=== PATIENT | male | born 1945 | race Caucasian/White ===

== ENCOUNTER → 2022-12-04 11:29 | Outpatient (CLI) | payer MEDICARE, OTHER, SELFPAY ==
--- NOTE | 2022-12-04 11:32 | DI.RAD.S_ITS ---
PROCEDURE: XR LUMBAR SPINE MIN 4V INDICATIONS: Lumbar radiculopathy right lower extremity TECHNIQUE: 5 views of the lumbar spine were acquired, including bilateral oblique views. COMPARISON: None. FINDINGS: Bones: 5 nonrib-bearing vertebrae are present. There is normal bony alignment. No acute vertebral body compression fractures. Chronic appearing anterior compression deformity of L2. Postsurgical changes of surgical fusion across the bilateral sacroiliac joints. Surgical screw extends across the right superior pubic ramus and superior acetabulum. Plate and screw fixation of the pubic symphysis with possible fracture of the plate to the left of the midline/pubic symphysis. No evidence for hardware loosening. No suspicious bony lesions. Moderate multilevel spondylosis of the imaged spine. Soft tissues: Overlying bowel gas pattern is normal. No suspicious soft tissue calcifications. Neurostimulator device projects over the left pelvis. Oblique images: No pars defects. IMPRESSION: Lumbar spine without acute osseous abnormalities. Chronic appearing anterior compression fracture of L2. Postsurgical changes of fusion across the bilateral sacroiliac joints, right superior acetabulum and superior pubic ramus, and pubic symphysis. Fixation plate appears to be fractured to the left of midline. No evidence for hardware loosening. Dictated by: Tommy Pinon M.D. on 12/04/2022 at 14:40 Approved by: Tommy Pinon M.D. on 12/04/2022 at 14:43
--- NOTE | 2022-12-04 11:32 | DI.RAD.S_ITS ---
PROCEDURE: XR HIP W PEL IF DONE KRISS MIN 4V INDICATIONS: Lumbar radiculopathy right lower extremity TECHNIQUE: AP pelvis with lateral view(s) of the bilateral hip(s). COMPARISON: None. FINDINGS: Bones: No acute fractures or dislocations. Pelvic ring appears intact. No suspicious bony lesions. Postsurgical changes of surgical fixation across the bilateral sacroiliac joints and right superior acetabulum and right superior pubic ramus. Plate and screw fixation of the pubic symphysis with apparent fracture of the plate to the left of midline. No evidence for hardware loosening. Degenerative changes of the bilateral hips Soft tissues: The visualized bowel gas pattern is normal. No suspicious soft tissue calcifications. Neurostimulator device projects over the left pelvis. IMPRESSION: Bilateral hip without acute fracture or dislocation. Degenerative changes of the bilateral hips. Postoperative changes from surgical fusion across the bilateral sacroiliac joints, right superior acetabulum and right superior pubic ramus, as well as the pubic symphysis. Pubic symphysis fixation plate appears to be fracture to the left of midline. No evidence for hardware loosening. Dictated by: Tommy Pinon M.D. on 12/04/2022 at 14:44 Approved by: Tommy Pinon M.D. on 12/04/2022 at 14:46
== END ==
PROVIDERS: PCP Family Medicine; Referring Provider Physical Medicine & Rehabilitation; Visit Provider Physical Medicine & Rehabilitation
DX: M54.16 Radiculopathy, lumbar region (principal); Z87.81 Personal history of (healed) traumatic fracture; Z98.1 Arthrodesis status; Z96.82 Presence of neurostimulator
CPT/HCPCS: 72110; 73522

== ENCOUNTER 2022-12-30 08:07 | Outpatient (CLI) | payer MEDICARE, OTHER, SELFPAY ==
[2022-12-30] VITALS (9 sets, daily range): BP systolic 133–168; BP diastolic 61–107; PULSE 60–61; RESP 13–18; TEMP 36.2; O2SAT 95–99
[2022-12-30] MEDS: MIDAZOLAM 2 MG/2 ML VIAL 1 MG IV (09:44)
[2022-12-30] MEDS: LIDOCAINE 1% 20 ML 5 ML INJ (09:49)
[2022-12-30] MEDS: BETAMETHASONE 30 MG/5 ML MDV 12 MG INJ (09:49)
[2022-12-30] MEDS: IOPAMIDOL 15 ML VIAL 3 ML INJ (09:50)
[2022-12-30] MEDS: BUPIVACAINE 0.5% (PF) 30 ML VIAL 5 ML INJ (09:51)
--- NOTE | 2022-12-30 10:04 | P.PCN_ITS ---
Date/Time/Diagnoses Date of procedure: 12/30/22 Time of procedure: 10:04 Pre-procedure diagnosis: Sacroiliac joint pain/DJD Post-procedure diagnosis: same Procedure Notes Procedure: Fluoroscopic guided contrast controlled bilateral sacroiliac joint injection Indications: Ron is referred by Dr. Yeager for treatment of bilateral sacroiliac joint DJD Physician: Suleman Bautista Total Fluoroscopy time (seconds): 13 Total sedation minutes: 16 Complications: none Procedure in detail & Post-procedure care: Description of procedure Fluoroscopic guided, contrast controlled bilateral sacroiliac joint injection Following review of allergies and review of potential side effects and complications, including, but not necessarily limited to, infection, allergic reaction, local tissue breakdown, temporary as well as permanent nerve injury, paralysis, stroke and possible , the patient indicated that they understood and agreed to proceed. An informed consent was signed by the patient, witnessed by a nurse, and placed in the patient's chart. Additionally, other treatment options including modalities, medications, and physical therapy were reviewed with the patient. After review of previous anaesthesic history and IV conscious sedation the patient was deemed safe to proceed with today?s procedure with IV conscious sedation as ASA class II designation. Safety time-out was performed to confirm patient ID, procedure to be performed and site of procedure. IV sedation was accomplished with a combination of 1mg Versed were administered by the RN after DO order, titrated to patient comfort during the course of the procedure while the patient remained responsive to all verbal commands In the prone position following sterile prep and drape of the pelvic region, the hyper lucency on in the inferior aspect of the sacroiliac joint was identified fluoroscopically the skin was anesthetized be a 25 gauge 1.5 inch needle with approximately 2cc of 1% lidocaine solution. At this point, a 22 gauge 3 in s beverly needle was atraumatically introduced and advanced under fluoroscopic guidance into the inferior aspect of the right sacroiliac joint. Following negative aspiration, approximately 0.3cc of Isovue-300 was injected confirming intra-articular placement without vascular uptake. Radiographic data, including multiple fluoroscopic views of the pelvis, reveals a spinal needle in the sacroiliac joint hyper lucent zone. Subsequent view show flow contrast tear superiorly and inferiorly within the joint capsule without vascular intrathecal uptake. At this point a total of 1cc of 0.5% Marcaine was combined with 1cc of 6mg of betamethasone was injected without incident. Attention was then refocused the left sacroiliac joint where the procedure was replicated. The procedure tolerated the procedure well without signs or symptoms of complications prior to transfer to the recovery area continued monitoring without incident. The patient was then transferred to the recovery area with a bur observed for an appropriate time after the injection. The patient reverted a vas score of 7 prior to the procedure and post-procedure vas of 1. Postop instructions The patient was provided with a pain like to continue to record the patient's response to the target specific procedure prior to the patient's follow-up visit with the referring physician. Additionally, specific post injection care instructions and a contact number to our office were provided if concerns arise regarding the possible complications associated with procedure are suspected.
--- NOTE | 2022-12-30 10:30 | DI.RAD.S_ITS ---
PROCEDURE: PAIN SI JOINT INJECTION KRISS INDICATIONS: SACROILIAC DISORDER COMPARISON: None. FINDINGS: Fluoroscopic spot filming was performed to verify placement of needles at the sacroiliac joints, as labeled on the films. Appropriate location(s) of the needle tip(s) was confirmed by injection of iodinated contrast. IMPRESSION: Intraprocedural fluoroscopy was provided for guidance and anatomical localization. Please see the procedure report for further details. Dictated by: Bo Coronado M.D. on 12/30/2022 at 16:34 Approved by: Bo Coronado M.D. on 12/30/2022 at 16:36
== END 2022-12-30 10:20 | disposition home or self-care (01) ==
LOC: RAD 08:09
PROVIDERS: Family Provider Physical Medicine & Rehabilitation; PCP Family Medicine; Referring Provider Physical Medicine & Rehabilitation; Visit Provider Physical Medicine & Rehabilitation
DX: M53.3 Sacrococcygeal disorders, not elsewhere classified (principal); M46.1 Sacroiliitis, not elsewhere classified
CPT/HCPCS: 27096; 99152; J0702; J2250

== ENCOUNTER → 2023-02-05 07:46 | Outpatient (CLI) | payer MEDICARE, OTHER, SELFPAY ==
[2023-02-05 08:37] LABS: Add Manual Diff / Slide Review NO; Basophils Absolute Auto 0 /uL (0-100); Basophils Percent Auto 0.7 % (0-2); Eosinophils Absolute Auto 300 /uL (0-450); Eosinophils Percent Auto 5.5 % (2-4); Hematocrit 38.8 % (41-53); Lymphocytes Absolute Auto 2300 /uL (1100-4500); Lymphocytes Percent Auto 44.5 % (25-40); Mean Corpuscular HGB Conc 33.6 % (30-36); Mean Corpuscular Hemoglobin 32.7 PG (26-34); Mean Corpuscular Volume 97.2 fL (80-100); Monocytes Absolute Auto 800 /uL (0-900); Monocytes Percent Auto 15.9 % (3-14); Neutrophils Absolute Auto 1700 /uL (1500-7000); Neutrophils Percent Auto 33.4 % (50-75); Platelet Count 161 X10^3/uL (150-400); Red Blood Cell Count 3.99 X10^6/uL (4.5-5.9); Red Cell Distribution Width 13.1 % (11.6-14.8); White Blood Cell Count 5.1 X10^3/uL (4.5-11.0)
[2023-02-05 08:46] LABS: Hemoglobin A1C% w Est Avg Glu 5.5 % (4.0-6.0)
[2023-02-05 09:12] LABS: Alanine Aminotransferase 21 IU/L (<50); Albumin 4.1 g/dL (3.5-5.0); Albumin Globulin Ratio 1.5 (1.0-2.8); Alkaline Phosphatase 72 U/L (38-126); Aspartate Aminotransferase 22 IU/L (17-59); BUN Creatinine Ratio 27.5 (6-22); Bilirubin Total 0.7 mg/dL (0.2-1.3); Blood Urea Nitrogen 22 mg/dL (9-20); Carbon Dioxide 29 mmol/L (22-32); Chloride 103 mmol/L (98-107); Cholesterol 128 mg/dL (140-199); Estimated Glomerular Filt Rate > 60 mL/min (>60); Globulin 2.7 g/dL (1.7-4.1); Glucose 94 mg/dL (80-110); HDL Cholesterol 46 mg/dL (40-60); HEMOLYSIS < 15 (0-50); LDL Cholesterol Calculated 58 mg/dL (<100); Potassium 4.2 mmol/L (3.4-5.1); Sodium 140 mmol/L (137-145); Total Protein 6.8 g/dL (6.3-8.2); Triglycerides 120 mg/dL (35-150)
== END ==
PROVIDERS: Family Provider Physical Medicine & Rehabilitation; PCP Family Medicine; Referring Provider Family Medicine; Visit Provider Family Medicine
DX: G31.83 Neurocognitive disorder with Lewy bodies (principal); I10 Essential (primary) hypertension; F02.A0 Dementia in other diseases classified elsewhere, mild, without behavioral disturbance, psychotic disturbance, mood disturbance, and anxiety; I25.10 Atherosclerotic heart disease of native coronary artery without angina pectoris
CPT/HCPCS: 36415; 80053; 80061; 83036; 85025

== ENCOUNTER 2023-02-25 08:30 | Outpatient (RCR) | payer MEDICARE, OTHER, SELFPAY ==
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
== END 2023-10-13 09:04 | disposition home or self-care (01) ==
LOC: OT 08:30
PROVIDERS: Absent Provider Physical Medicine & Rehabilitation; Family Provider Physical Medicine & Rehabilitation; PCP Family Medicine; Referring Provider Family Medicine; Visit Provider Family Medicine
DX: M19.049 Primary osteoarthritis, unspecified hand (principal); G31.83 Neurocognitive disorder with Lewy bodies; F02.A0 Dementia in other diseases classified elsewhere, mild, without behavioral disturbance, psychotic disturbance, mood disturbance, and anxiety; I25.10 Atherosclerotic heart disease of native coronary artery without angina pectoris; I10 Essential (primary) hypertension
CPT/HCPCS: 97035; 97110; 97140; 97165

== ENCOUNTER 2023-06-15 11:30 | Outpatient (RCR) | payer MEDICARE, OTHER, SELFPAY ==
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
--- NOTE | 2022-10-20 18:09 | PT.OPPOC ---
Physical, Occupational & Speech Therapy At [facility] Current Diagnoses Neurocognitive disorder with Lewy bodies (10/20/22) Low back pain, unspecified (10/20/22) Pain in right foot (10/20/22) Difficulty in walking, not elsewhere classified (10/20/22) Other abnormalities of gait and mobility (10/20/22) Abnormal posture (10/20/22) Weakness (10/20/22) Visit Care Team Role Provider Type Nyasia Azul MD Attending Provider Non-Staff Primary Care Provider Referring Provider Specialty: Family Practice Address: [facility], [address] [place] [address], [id number] Email: Plan Of Care PT-OP-T Assessment and Plan Start: 08/07/22 17:51 Freq: Status: Active Protocol: Document 10/20/22 18:05 [facility] (Rec: 10/20/22 18:06 [facility] [id number]) Physical Therapy Assessment Goals skiing Superintendent General Goal (LTG) Pt will be able return to skiing on green hills and feel safe. LTG Duration 12/13/22 patterned movements Senior Living Goal (LTG) Pt will be able to follow 6 patterned movements in a row w /o cueing. LTG Duration 12/13/22 Plan of Care Dates Plan of Care Start Date 10/20/22 Plan of Care End Date 12/13/22 Electronically Signed by: Luz Whatley, PT 10/20/22 3274 If you are in agreement with this Plan of Care, please return a signed and dated copy. I have reviewed this Plan of Care and certify that the skilled therapy services above are required to meet the patient?s needs. Physician Signature Date Printed Name and Credentials Clinical Instructor Signature Printed Name and Credentials
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
--- NOTE | 2022-12-09 18:49 | PT.OPPOC ---
Physical, Occupational & Speech Therapy At [facility] Current Diagnoses Neurocognitive disorder with Lewy bodies (12/09/22) Low back pain, unspecified (12/09/22) Pain in right foot (12/09/22) Difficulty in walking, not elsewhere classified (12/09/22) Other abnormalities of gait and mobility (12/09/22) Abnormal posture (12/09/22) Weakness (12/09/22) Visit Care Team Role Provider Type Nyasia Azul MD Attending Provider Non-Staff Primary Care Provider Referring Provider Specialty: Family Practice Address: [facility], [address] [place] [address], [id number] Email: Plan Of Care PT-OP-T Assessment and Plan Start: 08/07/22 17:51 Freq: Status: Active Protocol: Document 12/09/22 10:38 [facility] (Rec: 12/09/22 18:49 [facility] [id number]) Physical Therapy Assessment Goals skiing Snf Goal (LTG) Pt will be able return to skiing on green hills and feel safe. 11/17-has not tried 12/09-not attempted LTG Duration 4/3 patterned movements Program Services Planner Goal (LTG) Pt will be able to follow 6 patterned movements in a row w /o cueing. 12/09-able to follow 2 LTG Duration 4/9 walking Program Services Planner Goal (LTG) Pt will feel comfortable and will show no LOB w/amb on uneven/varied terrain. 11/17-has been walking mostly on even terrain 12/09-has not been trying LTG Duration 4/3 pain Short Term Goal (STG) Pt will be able to walk his half mile walk without requiring the need for a seated rest break STG Duration achieved-can take standing break talking to recover breath Program Services Planner Goal (LTG) Pt will able to be able to do a longer walk (1 mile or greater) without requiring rest break and inc ability to do hills. 12/09-1/2 mile at this time- encouraged to start adding to walks (not doing a lot d/t weather) LTG Duration 4/3 strength Short Term Goal (STG) Pt will be indep w/HEP for strength, ROM, and pain relief . STG Duration achieved-advancing as able Snf Goal (LTG) Pt will score at least 4+/5 on all LE MMT to show improved strength in order to allow greater ease w/pt mobility. 10/20-much improved 11/17-achieved ext R PF & B hp ext 12/09-still R eversion ,B hip ext & R PF limited LTG Duration 03/02 posture Short Term Goal (STG) Pt will be able to stand and sit with only moderate fwd posture allowing him to drink out of a cup fully. STG Duration achieved 10/20 Snf Goal (LTG) Pt will show improved posture with ability to keep head in more neutral vs fwd position to dec c/o back pain. 11/17-cues still needed 12/09-overall better, some cues needed when doing activity LTG Duration 03/02/23 6 min walk Program Services Planner Goal (LTG) Pt will be able to amb 6 min walk test w/o AD w/o any LOB, LBP or foot pain greater than 2/10 and amb at least 1200ft 09/16/22: GOAL MET: no LBP or foot pain and completed 1517 ft without AD, took albuterol pre tx and stated no chest tightness during assessment. LTG Duration GOAL MET 09/16/22 balance Short Term Goal (STG) Pt will score at least 20/24 on DGI to show dec fall risk 09/16/22: BROWN 53/56. STG Duration achieved Program Services Planner Goal (LTG) Pt will score at least 19/30 on FGA to show dec fall risk 09/26/22: GOAL MET: 1-19 % impairment. LTG Duration 11/10 GOAL MET Assessment Summary Assessment stopped hurdles d/t pt stepping off and ankle pain on R-able to walk after without significant deviation and only mild inc pain. Edu to pt and to contact MD if pain increases but by end of session pt noted he barely felt it. pt and feel like the dec to 1x/week has dec his progress. He still shows difficulty with patterned movement, high level balacne and glute strength. Improved hip ext w/manual. Physical Therapy Plan Frequency and Duration Frequency of Treatment 1-2x/Week Duration of treatment (weeks) 12 Plan of Care Start Date 12/09/22 Plan of Care End Date 03/03/23 Therapeutic Interventions Therapeutic Interventions Aquatic Therapy,Balance Training,Coordination Training ,Gait Training,Home Exercise Program,Joint Mobilizations, Manual Therapy,Neuromuscular Re-education,Orthotic/ Prosthetic Management,Patient/ Caregiver Education,Self-Care/ Home Management,Soft Tissue Mobilization,Taping, Therapeutic Activities, Therapeutic Exercises Next Visit Focus/Plan Next Note Type Treatment Note Next Visit Plan Try working on lg patterned movements for pt to follow, cont to advance sport cord work POC: Manual to improve posture , counting bwds and abcs during gait. Continue gait amplitude. Uneven surface with dynamic activity including walking. Plan of Care Dates Plan of Care Start Date 12/09/22 Plan of Care End Date 03/03/23 Electronically Signed by: Luz Whatley, PT 12/09/22 [id number] If you are in agreement with this Plan of Care, please return a signed and dated copy. I have reviewed this Plan of Care and certify that the skilled therapy services above are required to meet the patient?s needs. Physician Signature Date Printed Name and Credentials Clinical Instructor Signature Printed Name and Credentials
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
--- NOTE | 2023-03-03 17:30 | PT.OPPOC ---
Physical, Occupational & Speech Therapy At [facility] Current Diagnoses Neurocognitive disorder with Lewy bodies (03/03/23) Low back pain, unspecified (03/03/23) Pain in right foot (03/03/23) Difficulty in walking, not elsewhere classified (03/03/23) Other abnormalities of gait and mobility (03/03/23) Abnormal posture (03/03/23) Weakness (03/03/23) Visit Care Team Role Provider Type Nyasia Azul MD Attending Provider Non-Staff Primary Care Provider Referring Provider Specialty: Family Practice Address: [facility], [address] [place] [address], [id number] Email: Plan Of Care PT-OP-T Assessment and Plan Start: 08/07/22 17:51 Freq: Status: Active Protocol: Document 03/03/23 13:54 [facility] (Rec: 03/03/23 16:48 [facility] [id number]) Physical Therapy Assessment Goals boat Usp Goal (LTG) Pt will be able to safely be on boat w/ per report . LTG Duration 04/28/23 stairs Impairment pt having to hold onto 's arm Mule Developer Goal (LTG) Pt will be able do stairs w/o outside support safely in the community. LTG Duration 04/28 patterned movements Mule Developer Goal (LTG) Pt will be able to follow 6 patterned movements in a row w /o cueing. 12/09-able to follow 2 01/14-5 patterned movements in a row 03/03-able to follow 5 patterned movements more consistantly LTG Duration 04/28 walking Mule Developer Goal (LTG) Pt will feel comfortable and will show no LOB w/amb on uneven/varied terrain. 11/17-has been walking mostly on even terrain 12/09-has not been trying 01/14-hasn't been on any trails d/t weather (wet and rainy) 03/03-Has done some trails at [facility] where campers and felt okay LTG Duration achieved-pt reports no issues w/trails at [facility] pain Short Term Goal (STG) Pt will be able to walk his half mile walk without requiring the need for a seated rest break STG Duration achieved-can take standing break talking to recover breath Mule Developer Goal (LTG) Pt will able to be able to do a longer walk (1 mile or greater) without requiring rest break and inc ability to do hills. 12/09-1/2 mile at this time- encouraged to start adding to walks (not doing a lot d/t weather) 01/14-doing 1 mile w/1 break LTG Duration able to do 4 mile walk w/3-4 rest breaks d/tchest only strength Short Term Goal (STG) Pt will be indep w/HEP for strength, ROM, and pain relief . STG Duration achieved-advancing as able Mule Developer Goal (LTG) Pt will score at least 4+/5 on all LE MMT to show improved strength in order to allow greater ease w/pt mobility. 10/20-much improved 11/17-achieved ext R PF & B hp ext 12/09-still R eversion ,B hip ext & R PF limited 01/14-mild R inversion limit & B hip ext & R PF limit; LPM dec 03/03-still PF on R limited LTG Duration 04/28 posture Short Term Goal (STG) Pt will be able to stand and sit with only moderate fwd posture allowing him to drink out of a cup fully. STG Duration achieved 10/20 Mule Developer Goal (LTG) Pt will show improved posture with ability to keep head in more neutral vs fwd position to dec c/o back pain. 11/17-cues still needed 12/09-overall better, some cues needed when doing activity 01/14-improving 3/5 [address] VCT w/ occ cues still needed 4/4-cues needed for neck LTG Duration 04/28 Assessment Summary Assessment Pt has made excellent progress since last progress report and is showing improved activity tolerance w/less reports of ankle or back pain. He still c/o ankle discomfort w/activity. He would benefit from cont skilled PT to cont to advance stabiltiy to feel comfortable and be safe on boat along w/ be able to navigate stairs int he community w/o issues.Pt will do 2x/ this week then go down to 1x/week. Physical Therapy Plan Frequency and Duration Frequency of Treatment 2x/wk 1 week;1x/wk Duration of treatment (weeks) 8 Plan of Care Start Date 03/03/23 Plan of Care End Date 04/28/23 Therapeutic Interventions Therapeutic Interventions Aquatic Therapy,Balance Training,Coordination Training ,Gait Training,Home Exercise Program,Joint Mobilizations, Manual Therapy,Neuromuscular Re-education,Orthotic/ Prosthetic Management,Patient/ Caregiver Education,Self-Care/ Home Management,Soft Tissue Mobilization,Taping, Therapeutic Activities, Therapeutic Exercises Next Visit Focus/Plan Next Note Type Treatment Note Next Visit Plan uneven surface activities to work on pt ability to be on boat this summer, Continue working on lg patterned movements for pt to follow, coordination step patterning, cont to advance sport cord work, prone LE ext & press ups for core/glut strength and anterior chain flexibility for gait alignment/posturing. POC: Manual to improve posture , counting bwds and abcs during gait. Continue gait amplitude. Uneven surface with dynamic activity including walking. Plan of Care Dates Plan of Care Start Date 03/03/23 Plan of Care End Date 04/28/23 Electronically Signed by: Luz Whatley, PT 03/03/23 6511 If you are in agreement with this Plan of Care, please return a signed and dated copy. I have reviewed this Plan of Care and certify that the skilled therapy services above are required to meet the patient?s needs. Physician Signature Date Printed Name and Credentials Clinical Instructor Signature Printed Name and Credentials
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
== END 2023-06-25 16:30 | disposition home or self-care (01) ==
LOC: PHYS 11:30
PROVIDERS: PCP Family Medicine; Referring Provider Family Medicine; Visit Provider Family Medicine
DX: G31.83 Neurocognitive disorder with Lewy bodies (principal); R53.1 Weakness; M54.50 Low back pain, unspecified; M79.671 Pain in right foot; R26.2 Difficulty in walking, not elsewhere classified; R29.3 Abnormal posture; R26.89 Other abnormalities of gait and mobility
CPT/HCPCS: 97110; 97112; 97116; 97140; 97162; 97535

== ENCOUNTER → 2023-06-25 15:24 | Outpatient (CLI) | payer MEDICARE, OTHER, SELFPAY ==
--- NOTE | 2023-06-25 15:26 | DI.CT.S_ITS ---
PROCEDURE: CT LUMBAR SPINE WO CON INDICATIONS: Lumbar stenosis with Right LE L5 symptoms TECHNIQUE: Noncontrast 3 mm thick sections acquired from the T12 level to the sacrum. Sagittal and coronal reformats were constructed. For radiation dose reduction, the following was used: automated exposure control. COMPARISON: DamianAyad Tawanda Alejandre, , CT LUMBAR SPINE, 08/17/2019, 7:20. FINDINGS: Image quality: Excellent. Bones: A straightening of normal lumbar lordosis. Mild levocurvature. Similar extent of L2 compression deformity with 75% height loss centrally. Redemonstration of retropulsion into the spinal canal resulting in moderate central canal stenosis. No suspicious lytic or blastic bony lesions. No pars defects. There are multilevel degenerative changes of the lumbar spine. There is diffusely decreased osseous mineralization. Multilevel anterior osteophyte formation. Multilevel disc height, most severe at L5-S1 with vacuum disc phenomenon. Facet hypertrophy is worse at L3-L4, L4-5 and L5-S1.. Moderate narrowing of the spinal canal at L1-L2 secondary to compression deformity and retropulsion as above. Otherwise, no significant central canal narrowing. Multilevel osseous foraminal narrowing, worse at L2-L3 and L5-S1 bilaterally with at least moderate narrowing. Bilateral sacroiliac screw fixation. The fracture lines are still visible. Soft tissues: No retroperitoneal masses or hematomas. Visualized aorta is normal in caliber. Atherosclerotic vascular calcifications. Bilateral renal cysts. Fatty atrophy of the pancreas. IMPRESSION: 1. Multilevel degenerative changes of the lumbar spine. Compression deformity at L2 is stable compared to prior with retropulsion resulting in moderate central canal stenosis. 2. Multilevel osseous neural foraminal narrowing, worse at L2-L3 and L5-S1 bilaterally. Dictated by: Ruben Salazar M.D. on 06/26/2023 at 9:40 Approved by: Ruben Salazar M.D. on 06/26/2023 at 9:48
== END ==
PROVIDERS: Family Provider Family Medicine; PCP Family Medicine; Referring Provider Physical Medicine & Rehabilitation; Visit Provider Physical Medicine & Rehabilitation
DX: M47.26 Other spondylosis with radiculopathy, lumbar region (principal); M47.27 Other spondylosis with radiculopathy, lumbosacral region; M53.3 Sacrococcygeal disorders, not elsewhere classified; M48.061 Spinal stenosis, lumbar region without neurogenic claudication; M48.07 Spinal stenosis, lumbosacral region; Z87.81 Personal history of (healed) traumatic fracture
CPT/HCPCS: 72131

== ENCOUNTER 2023-07-20 14:30 | Outpatient (RCR) | payer MEDICARE, OTHER, SELFPAY ==
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
--- NOTE | 2023-06-24 17:03 | PT.OPPOC ---
Physical, Occupational & Speech Therapy At [facility] Current Diagnoses Parkinson's disease (06/24/23) Visit Care Team Role Provider Type Rodolfo Yeager DO Attending Provider Physician Family Provider Primary Care Provider Referring Provider Specialty: Family Practice Address: [address] [place] [address], [address], [address] Email: [email or web address] Plan Of Care PT-OP-T Assessment and Plan Start: 06/22/23 15:35 Freq: Status: Active Protocol: Document 06/24/23 15:32 [facility] (Rec: 06/24/23 17:03 [facility] [id number]) Physical Therapy Assessment Rehab Potential Rehabilitation Potential Fair Evaluation Complexity Number of Personal Factors/Comorbidities 3 or More Number of Body Systems Impaired 3 Clinical Presentation at Evaluation Evolving Impairments Impairments Activity Tolerance,Balance, Coordination,Functional Activities,Functional Mobility ,Gait,Pain Other Concerns Fall Risk Yes Goals 5 Impairment 9 STS in 30 sec Drum Tender Goal (LTG) Pt will perform at least 14 reps of STS in 30 sec to improve functional balance and strength. LTG Duration 16 treatments or 5 weeks 4 Impairment Lack of HEP Group Home Goal (LTG) Pt will perform BIG exercises and functional activities HEP with no more than cues to improve amplitude of movement and balance. LTG Duration 16 treatments or 5 weeks 3 Impairment 1348 gait in 6 minutes Group Home Goal (LTG) Pt will gait train at least 1600 feet in 6 minutes to improve community ambulation and balance. LTG Duration 16 treatments of 5 weeks 2 Impairment TUG in 14 sec Group Home Goal (LTG) Pt will perform TUG in no more than 10 sec to decrease fall risk. LTG Duration 16 treatments or 5 weeks 1 Impairment ABC score reflects 36.25% confidence in balance Group Home Goal (LTG) Pt will present with ABC score reflecting at least 50% confidence in balance in mobility tasks to improve quality of life and to decrease fall risk. LTG Duration 16 treatments or 5 weeks Assessment Summary Assessment Pt is a 77 y/o male presenting with Parkinson's-like symptoms of mask-like expression, tremor, bradykinesia and very poor coordination in setting of Lewy Body Dementia. His LE strength is normal with MMT today. Pt does have significant communicative and cognitive challenges during assessment. These may be a barrier to BIG therapy. He also has a history of multiple right foot injuries and pelvic fractures and resulting pain. These are also potential barriers to tolerating BIG exercises. , Suyapa, arrives with PT and is very supportive. Since LSVT BIG does focus on neurologically challenging exercises, walking and balance activities as well as personalized functional activities, it may be a very helpful program for pt. Will have to see how he responds to treatment. PT ed pt and that his goal of driving will not be met in this outpatient setting as that requires quick processing, decision making and fine motor skills and requires MD and driving therapist to assess. Similarly , they express goals of getting back on sailboat and downhill skiing. They appear to be grieving their loss of their high quality of life ( sailing, biking trips, flying, traveling). They do not appear to understand or accept yet the neurodegenerative nature of Lewy Body Dementia. This is a potential barrier to therapy. Pt could potentially improve in balance, gait and exercises with the structured nature of LSVT BIG. Physical Therapy Plan Frequency and Duration Frequency of Treatment 4x/Week Duration of treatment (weeks) 5 Plan of Care Start Date 06/24/23 Plan of Care End Date 07/29/23 Therapeutic Interventions Therapeutic Interventions Balance Training,Coordination Training,Gait Training,Home Exercise Program,Neuromuscular Re-education,Patient/ Caregiver Education,Self-Care/ Home Management,Therapeutic Activities,Therapeutic Exercises Next Visit Focus/Plan Next Note Type Treatment Note Next Visit Plan Initiate BIG exercise prescription Plan of Care Dates Plan of Care Start Date 06/24/23 Plan of Care End Date 07/29/23 Electronically Signed by: Gail Valdes PT 06/24/23 6424 If you are in agreement with this Plan of Care, please return a signed and dated copy. I have reviewed this Plan of Care and certify that the skilled therapy services above are required to meet the patient?s needs. Physician Signature Date Printed Name and Credentials Clinical Instructor Signature Printed Name and Credentials
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
--- NOTE | 2023-07-16 07:22 | PT-IP ANOTE ---
Late entry for PT note last date. During gait, pt wandered to different areas as PT attempted to instruct him to go in and out of doorways. Once again, his cognitive challenges are a barrier to progression with gait and other BIG tasks.
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
--- NOTE | 2023-07-16 12:43 | PT-IP ANOTE ---
PT attempts to communicate with referring provider, Dr. Yeager, twice today: by inhouse secure email and by phone. Per staff in his clinic, he is on vacation. PT would like to include referring physician in conversation with pt and about his cognitive presentation/decline and lack of progress with BIG. Will continue efforts next week as provider available.
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
== END 2023-07-27 12:30 | disposition home or self-care (01) ==
LOC: PHYS 14:30
PROVIDERS: Family Provider Family Medicine; PCP Family Medicine; Referring Provider Family Medicine; Visit Provider Family Medicine
DX: G20 Parkinson's disease (principal)
CPT/HCPCS: 97110; 97116; 97162; 97530; 97535

== ENCOUNTER 2023-07-28 09:22 | Outpatient (CLI) | payer MEDICARE, OTHER, SELFPAY ==
[2023-07-28] VITALS (9 sets, daily range): BP systolic 104–121; BP diastolic 58–76; PULSE 60–61; RESP 14–18; TEMP 35.9; O2SAT 94–98
--- NOTE | 2023-07-28 09:23 | DI.RAD.S_ITS ---
PROCEDURE: PAIN L INTERLAMINAR/CAUDAL INJ INDICATIONS: SPONDYLOSIS COMPARISON: , CT, CT LUMBAR SPINE WO CON, 06/25/2023, 15:34. FINDINGS: Fluoroscopic spot filming was performed to verify placement of a spinal needle at the L5-S1 level, as labeled on the films. Appropriate location of the needle tip was confirmed by injection of iodinated contrast. IMPRESSION: No significant intraprocedural abnormality. Dictated by: Jacky Baltazar M.D. on 07/28/2023 at 19:52 Approved by: Jacky Baltazar M.D. on 07/28/2023 at 19:53
[2023-07-28] MEDS: MIDAZOLAM 2 MG/2 ML VIAL 1 MG IV ×2 (10:15→10:20)
[2023-07-28] MEDS: BUPIVACAINE 0.25% (PF) VIAL 2 ML INJ (10:24)
[2023-07-28] MEDS: BETAMETHASONE 30 MG/5 ML MDV 6 MG INJ (10:24)
[2023-07-28] MEDS: DEXAMETHASONE 10 MG/ML VIAL INJ (10:25)
[2023-07-28] MEDS: IOPAMIDOL 15 ML VIAL 3 ML INJ (10:25)
--- NOTE | 2023-07-28 10:35 | P.PCN_ITS ---
Date/Time/Diagnoses Date of procedure: 07/28/23 Time of procedure: 10:35 Pre-procedure diagnosis: 1. HNP WITH RADICULAR FEATURES, 2. MULTILEVEL CENTRAL STENOSIS, Post-procedure diagnosis: same Procedure Notes Procedure: 1. FLUOROSCOPICALLY GUIDED CONTRAST CONTROLLED INTERLAMINAR EPIDURAL STEROID INJECTION - L5/S1 Indications: Ron is referred by Dr. Yeager for treatment of Bilateral Foraminal Stenosis L>R LE symptoms. Physician: Suleman Bautista Total Fluoroscopy time (seconds): 8 Total sedation minutes: 14 Complications: none Procedure in detail & Post-procedure care: FINDINGS Multilevel Central Spinal Stenosis with Nerve Root Compression DESCRIPTION OF PROCEDURE Fluoroscopically guided, contrast-controlled L5/S1 translaminar epidural steroid injection. Following review of allergy and review of potential side effects and complications, including, but not necessarily limited to, infection, allergic reaction, local tissue breakdown, temporary as well as permanent nerve injury, paralysis, stroke and possible , the patient indicated that the patient understood and agreed to proceed. An informed consent document was signed by the patient, witnessed by a nurse, and placed in the patient's chart. Additionally, other treatment options including modalities, medications, and physical therapy were reviewed with the patient. After review of previous anaesthesic history and IV conscious sedation the patient was deemed safe to proceed with today?s procedure with IV conscious sedation as ASA class II designation. Safety time-out was performed to confirm patient ID, procedure to be performed and site of procedure. IV sedation was accomplished with a combination of 2mg of Versed administered by the RN after DO order, titrated to patient comfort during the course of the procedure while the patient remained responsive to all verbal commands. In the prone position, following sterile prep and drape of the lumbar region, the L5/S1 translaminar space was identified fluoroscopically. The skin was anesthetized via a 25-gauge, 1.5-inch needle with 1% lidocaine solution. At this point, a 22-gauge short bevel spinal needle was atraumatically introduced and advanced under fluoroscopic guidance into the region of the L5/S1 translaminar space. Depth was confirmed on lateral view. Radiological data, including multiple fluoroscopic views of the lumbar spine, reveal a spinal needle at the L5/S1 translaminar space. Lateral views then show placement of the needle in the epidural space. Subsequent views show contrast material flowing superiorly and inferiorly in the epidural space. No vascular or intrathecal uptake is observed. At this point, using loss of resistance technique with saline and air, the epidural space was entered. This was confirmed following negative aspiration with injection of approximately 1.5cc of Isovue 200, showing excellent epidural flow without vascular or intrathecal uptake. At this point, 1 cc of 1% lidocain e solution combined with 2cc or 10mg of dexamethasone and 6mg of betamethasone was injected without incident. The patent tolerated the procedure without signs of symptoms of complications prior to transfer to the recovery area for further monitoring. The patient was then transferred to the recovery area where they were observed for an appropriate period of time after the injection. The patient reported a VAS score of 6 prior to the procedure and a post-procedure VAS of 0. POST OP INSTRUCTIONS The patient was provided a Pain Log to continue to record their response to the target-specific procedure prior to follow-up visit with their referring physician. Additionally, specific post-injection care instructions and a contact number to our office were provided if concerns arise regarding possible complications associated with the procedure are suspected.
== END 2023-07-28 11:03 | disposition home or self-care (01) ==
PROVIDERS: Family Provider Family Medicine; PCP Family Medicine; Referring Provider Physical Medicine & Rehabilitation; Visit Provider Physical Medicine & Rehabilitation
DX: M51.17 Intervertebral disc disorders with radiculopathy, lumbosacral region (principal); M48.07 Spinal stenosis, lumbosacral region
CPT/HCPCS: 62323; 99152; J0702; J1100; J2250

== ENCOUNTER 2023-10-06 10:30 | Outpatient (RCR) | payer MEDICARE, OTHER, SELFPAY ==
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
--- NOTE | 2023-06-25 13:19 | ST-OP ANOTE ---
Physical, Occupational & Speech Therapy At [facility] Speech Therapy Note CAR WHACKER developed new POC this date and sent via [employer] to PCP, Rodolfo Yeager, at 13:18pm. Requested signature if in agreement with new POC.
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
--- NOTE | 2023-08-19 11:43 | ST.OPTN ---
Visit Care Team Role Provider Type Suleman Bautista DO Family Provider Physician Address: [address] [place], [address] Rodolfo Yeager DO Attending Provider Physician Primary Care Provider Referring Provider Address: [address] [place] [address], [address], [place], [address] CERTIFIED ADDICTION COUNSELOR Treatment Note CERTIFIED ADDICTION COUNSELOR Treatment Note Start: 03/23/23 09:33 Freq: Status: Active Protocol: Document 08/19/23 11:36 CG (Rec: 08/19/23 11:43 CG [id number]) Speech Pathology Treatment Note Session Time Visit Start Time 10:35 Visit Stop Time 11:30 Total Visit Minutes 55 Visit Information Visit Number 4 Plan of Care Dates 06/25/23-09/25/23 Setting Treatment Setting Outpatient Care Next Note Type Next Note Type Treatment Note General Information Patient History The patient is a 77-year-old male with a medical history significant for Lewy body dementia, coronary artery disease with a pacemaker, hypertension, exercise-induced asthma, lumbar radiculopathy, BPH. Four years ago he experienced a 20-foot fall onto concrete and was airlifted to the hospital, where he underwent multiple surgeries to recover from fractures. More recently, he was referred to the clinic due to concerns regarding deficits in cognitive- linguistic function, word- finding difficulties, and deficits in vocal intensity secondary to Parkinson's and Lewy body dementia. The pt states his goals for treatment are stronger voice, help finding words, and clear occasional fogginess. Subjective Identification Type Name Observations/Patient Presentation Pt arrived on time to his appointment with his , Suyapa, who again attended the session to discuss progress and POC with CERTIFIED ADDICTION COUNSELOR and pt. Chief Complaint(s) Cognitive,Voice Patient Knowledge/Awareness of CERTIFIED ADDICTION COUNSELOR Role Excellent in Treatment Patient/Caregiver Compliance with Home Excellent Exercise Program Objective Short Term Goals 1. Pt will maintain average maximum phonation time of at least 15s. 2. Pt will complete home exercise program for voice as prescribed in 80% of opportunities as reported by pt and family. 3. Pt and family will benefit from education in compensatory strategies for cognition including metacognitive strategies and external aids for memory. [employer] Goals 1. Pt will demonstrate average intensity level of at least 70dB during structured conversation tasks. 2. Pt will utilize compensatory strategies for memory in order to complete IADLs (including medication management, cooking, etc) with minimal assistance from caregivers. Treatment Activities Today's session consisted of continued pt/family education and planning regarding pt's POC. Discussed results of ENT appointment by going over ENT report and explained vocal bowing/presbylarynx. Further discussed limited evidence base for decontextualized cognitive therapy approaches. Introduced adduction exercises ; discussed using PhoRTE approach for presbylarynx. CERTIFIED ADDICTION COUNSELOR will develop updated home exercise program given new information from ENT report. Assessment Patient Response to Treatment Good Rehab Potential Excellent Impairments Identified Voice Progress Towards Goals Excellent Progress Assessment of Overall Progress Unchanged Assessment of Improvement Pt has maintained adequate loudness for speech based on data, observation, and pt/ family report. He was able to produce sustained /a/ with an average of 14.4s and 72dB. Pt completed new adduction exercises accurately given min verbal cues and demonstration . Pt and agreeable to continued therapy with new exercises to specifically target increasing vocal fold closure due to vocal bowing observed by ENT. Will continue to monitor cognition and discuss possible approaches. Reviewed with Patient Goals,Progress Being Made Patient/Caregiver Understanding Good Plan Amount of Therapy Recommended 2-3 Months Frequency of Treatment Once a Week Length of Session 45 Minutes Therapeutic Contents Client Education Provided Patient/Caregiver Instruction Plan of Care
--- NOTE | 2023-09-02 11:32 | ST.OPTN ---
Visit Care Team Role Provider Type Suleman Bautista DO Family Provider Physician Address: [address] [place], [address] Rodolfo Yeager DO Attending Provider Physician Primary Care Provider Referring Provider Address: [address] [place] [address], [address], [place], [address] OBSTETRICAL TECH Treatment Note OBSTETRICAL TECH Treatment Note Start: 03/23/23 09:33 Freq: Status: Active Protocol: Document 09/02/23 11:22 CG (Rec: 09/02/23 11:32 CG [id number]) Speech Pathology Treatment Note Session Time Visit Start Time 10:36 Visit Stop Time 11:20 Total Visit Minutes 44 Visit Information Visit Number 5 Plan of Care Dates 06/25/23-09/25/23 Setting Treatment Setting Outpatient Care Next Note Type Next Note Type Treatment Note General Information Patient History The patient is a 77-year-old male with a medical history significant for Lewy body dementia, coronary artery disease with a pacemaker, hypertension, exercise-induced asthma, lumbar radiculopathy, BPH. Four years ago he experienced a 20-foot fall onto concrete and was airlifted to the hospital, where he underwent multiple surgeries to recover from fractures. More recently, he was referred to the clinic due to concerns regarding deficits in cognitive- linguistic function, word- finding difficulties, and deficits in vocal intensity secondary to Parkinson's and Lewy body dementia. The pt states his goals for treatment are stronger voice, help finding words, and clear occasional fogginess. Subjective Identification Type Name Observations/Patient Presentation Pt arrived on time to his appointment with his , Suyapa, who attended the session. Chief Complaint(s) Cognitive,Voice Patient Knowledge/Awareness of OBSTETRICAL TECH Role Excellent in Treatment Patient/Caregiver Compliance with Home Excellent Exercise Program Objective Short Term Goals 1. Pt will maintain average maximum phonation time of at least 15s. 2. Pt will complete home exercise program for voice as prescribed in 80% of opportunities as reported by pt and family. 3. Pt and family will benefit from education in compensatory strategies for cognition including metacognitive strategies and external aids for memory. Intermediate Goals 1. Pt will demonstrate average intensity level of at least 70dB during structured conversation tasks. 2. Pt will utilize compensatory strategies for memory in order to complete IADLs (including medication management, cooking, etc) with minimal assistance from caregivers. Treatment Activities Introduced updated home exercise program based on Marvel approach. Exercises included sustained /a/ ( assigned x10 daily), pitch glides (assigned x10 daily), functional phrases in high pitch (10 phrases), and functional phrases in low pitch (10 phrases). Cues included cues to push, squeeze from bellybutton and take deep belly breaths. Additionally, provided feedback on vocal exercise performance. Pt was instructed to finish coming up with functional phrases and complete HEP daily. Assessment Patient Response to Treatment Good Rehab Potential Excellent Impairments Identified Voice Progress Towards Goals Excellent Progress Assessment of Overall Progress Unchanged Assessment of Improvement Ron continues to present with a moderately hoarse voice , particularly during connected speech tasks. During sustained phonation/ pitch glide tasks, hoarseness is decreased, presumably due to increased adduction during structured exercises. Ron responded well to use of chair push technique for increasing subglottic pressure and adduction. He had some difficulty maintaining pitch and not using downtalk during functional phrases, but this resolved with cues to say each sentence as if he was asking a question. Use of dog pant technique increased diaphragmatic utilization during lower pitched functional phrases. Will probe sustained /a/ next session for progress monitoring. Pt stated no questions with home exercise program. Reviewed with Patient Goals,Progress Being Made Patient/Caregiver Understanding Good Plan Amount of Therapy Recommended 2-3 Months Frequency of Treatment Once a Week Length of Session 45 Minutes Therapeutic Contents Client Education,Voice Training Provided Patient/Caregiver Instruction Plan of Care Therapy Recommendations Other
--- NOTE | 2023-09-17 13:19 | ST.OPTN ---
Visit Care Team Role Provider Type Suleman Bautista DO Family Provider Physician Address: [address] [place], [address] Rodolfo Yeager DO Attending Provider Physician Primary Care Provider Referring Provider Address: [address] [place] [address], [address], [place], [address] MARKETING SERVICES MANAGER Treatment Note MARKETING SERVICES MANAGER Treatment Note Start: 03/23/23 09:33 Freq: Status: Active Protocol: Document 09/17/23 12:41 CG (Rec: 09/17/23 13:19 CG [id number]) Speech Pathology Treatment Note Session Time Visit Start Time 11:47 Visit Stop Time 12:30 Total Visit Minutes 43 Visit Information Visit Number 6 Plan of Care Dates 06/25/23-09/25/23 Setting Treatment Setting Outpatient Care Next Note Type Next Note Type Treatment Note General Information Patient History The patient is a 77-year-old male with a medical history significant for Lewy body dementia, coronary artery disease with a pacemaker, hypertension, exercise-induced asthma, lumbar radiculopathy, BPH. Four years ago he experienced a 20-foot fall onto concrete and was airlifted to the hospital, where he underwent multiple surgeries to recover from fractures. More recently, he was referred to the clinic due to concerns regarding deficits in cognitive- linguistic function, word- finding difficulties, and deficits in vocal intensity secondary to Parkinson's and Lewy body dementia. The pt states his goals for treatment are stronger voice, help finding words, and clear occasional fogginess. Subjective Identification Type Name Observations/Patient Presentation Pt arrived on time to his appointment with his , Suyapa, who attended the first few minutes of the session before returning to the waiting room. Chief Complaint(s) Cognitive,Voice Patient Knowledge/Awareness of MARKETING SERVICES MANAGER Role Excellent in Treatment Patient/Caregiver Compliance with Home Excellent Exercise Program Objective Short Term Goals 1. Pt will maintain average maximum phonation time of at least 15s. 2. Pt will complete home exercise program for voice as prescribed in 80% of opportunities as reported by pt and family. 3. Pt and family will benefit from education in compensatory strategies for cognition including metacognitive strategies and external aids for memory. Nursing Home Goals 1. Pt will demonstrate average intensity level of at least 70dB during structured conversation tasks. 2. Pt will utilize compensatory strategies for memory in order to complete IADLs (including medication management, cooking, etc) with minimal assistance from caregivers. Treatment Activities Discussed recent changes in voice together with pt's . Reviewed updated home exercise program based on Marvel approach. Exercises included sustained /a/ ( assigned x10 daily), pitch glides (assigned x10 daily), functional phrases in high pitch (10 phrases), and functional phrases in low pitch (10 phrases). Cues included cues to push, squeeze from bellybutton, drop your jaw and take deep belly breaths. Provided new visual cue for mouth posture during sustained /a/ exercises and pitch glides due to pt tendency to limit oral ROM during exercises. Provided copy of visual to take home for HEP. Assessment Patient Response to Treatment Good Rehab Potential Excellent Impairments Identified Voice Progress Towards Goals Excellent Progress Assessment of Overall Progress Unchanged Assessment of Improvement Ron continues to present with a moderately hoarse voice , which seemed exacerbated this session compared to last. His Suyapa reports that his voice has been fading though it is unclear what change in environment, routine , or diet may be impacting. During sustained phonation task today, Ron was able to produce sustained /a/ with an average of 70.2dB and an average duration of 12.3 seconds. This is a decreased duration from previous sessions, and vocal quality throughout remained relatively hoarse, though volume did increase throughout trials. During functional phrases at higher pitch and lower pitch, Ron demonstrated an average volume of 77dB given mod cues for loudness and MARKETING SERVICES MANAGER demonstration of task. Ron benefits from reminders to exaggerate facial range of motion and exaggerate volume in order to complete therapeutic tasks. He was provided with updated functional phrases sheet for home practice. Additionally, MARKETING SERVICES MANAGER reviewed progress with pt' s . Ron's POC to next week. Recommend continued voice therapy based on recent decline in vocal function; will discuss with pt and . Reviewed with Patient Goals,Progress Being Made Patient/Caregiver Understanding Good Plan Amount of Therapy Recommended 2-3 Months Frequency of Treatment Once a Week Length of Session 45 Minutes Therapeutic Contents Client Education,Voice Training Provided Patient/Caregiver Instruction Plan of Care Therapy Recommendations Other
--- NOTE | 2023-10-06 11:36 | ST.OPTN ---
Visit Care Team Role Provider Type Suleman Bautista DO Family Provider Physician Address: [address] [place], [address] Rodolfo Yeager DO Attending Provider Physician Primary Care Provider Referring Provider Address: [address] [place] [address], [address], [place], [address] WIRELESS WATCHER Treatment Note WIRELESS WATCHER Treatment Note Start: 03/23/23 09:33 Freq: Status: Active Protocol: Document 10/06/23 11:24 CG (Rec: 10/06/23 11:36 CG [id number]) Speech Pathology Treatment Note Session Time Visit Start Time 10:30 Visit Stop Time 11:20 Total Visit Minutes 50 Visit Information Visit Number 1 Plan of Care Dates 10/06/23-01/06/24 Setting Treatment Setting Outpatient Care Next Note Type Next Note Type Treatment Note General Information Patient History The patient is a 77-year-old male with a medical history significant for Lewy body dementia, coronary artery disease with a pacemaker, hypertension, exercise-induced asthma, lumbar radiculopathy, BPH. Four years ago he experienced a 20-foot fall onto concrete and was airlifted to the hospital, where he underwent multiple surgeries to recover from fractures. More recently, he was referred to the clinic due to concerns regarding deficits in cognitive- linguistic function, word- finding difficulties, and deficits in vocal intensity secondary to Parkinson's and Lewy body dementia. The pt states his goals for treatment are stronger voice, help finding words, and clear occasional fogginess. Subjective Identification Type Name Observations/Patient Presentation Pt arrived on time to his appointment with his , Suyapa, who did not attend the session. Chief Complaint(s) Cognitive,Voice Patient Knowledge/Awareness of WIRELESS WATCHER Role Excellent in Treatment Patient/Caregiver Compliance with Home Excellent Exercise Program Objective Short Term Goals 1. Pt will maintain average maximum phonation time of at least 12s. (UPDATED GOAL) 2. Pt will complete adduction exercises with 75% accuracy independently in order to decrease symptoms of presbyphonia. (NEW GOAL) 3. Pt and family will benefit from education in compensatory strategies for cognition including metacognitive strategies and external aids for memory. (CONTINUE) 4. Pt will complete respiratory control exercises to inhale/exhale at a ratio of 7s:14s in 80% of opportunities. Winch Runner Goals 1. Pt will demonstrate average intensity level of at least 70dB during structured conversation tasks. 2. Pt will utilize compensatory strategies for memory in order to complete IADLs (including medication management, cooking, etc) with minimal assistance from caregivers. Treatment Activities Initiated with oral-facial exercises to increase facial movement and decrease flat affect during exercises. Provided continued training and feedback on sustained /a/ exercises, with frequent multimodality cues to drop jaw in order to open oral cavity. Additionally, provided extensive training in two steps of sustained /a/ ( breathing in through pursed lips, out with large open oral cavity) with color coded, simple instructions to increase comprehension due to cognitive deficits. Introduced breath control exercise to learn control of airflow. Pt was instructed to breath in and out on 1:2 ratio, beginning with 4s inhale and 8s exhale and progressing to 5s inhale, 10s exhale. Assessment Patient Response to Treatment Good Rehab Potential Fair Impairments Identified Voice Progress Towards Goals Excellent Progress Assessment of Overall Progress Unchanged Assessment of Improvement Ron continues to present with a moderately hoarse voice , and breath control overall appears weakened compared to previous sessions. During sustained phonation task today , Ron was able to produce sustained /a/ with an average of 71.8dBdB and an average duration of 9.2 seconds. This is a decreased duration from previous sessions, likely due to lack of control of airflow and lack of full adduction. Subjectively, there is audible airflow through the vocal folds, which are not fully adducting. This is partially resolved by cue to use hands to pull up on chair and bear down to facilitate adduction. WIRELESS WATCHER reviewed progress with pt' s and discussed writing updated POC for continued voice therapy. POC updated this date with new goals emphasizing maintenance of progress and rehabilitation of vocal fold adduction. Reviewed with Patient Goals,Progress Being Made Patient/Caregiver Understanding Good Plan Amount of Therapy Recommended 2-3 Months Frequency of Treatment Once a Week Length of Session 45 Minutes Therapeutic Contents Client Education,Voice Training Provided Patient/Caregiver Instruction Plan of Care Therapy Recommendations Other
--- NOTE | 2023-10-06 11:37 | ST.OPPOC ---
Physical, Occupational & Speech Therapy At [facility] Visit Care Team Role Provider Type Suleman Bautista DO Family Provider Physician Address: [address] [place], [address] Rodolfo Yeager DO Attending Provider Physician Primary Care Provider Referring Provider Address: [address] [place] [address], [address], [place], [address] Speech Pathology Plan of Care Plan of Care Dates 10/06/23-01/06/24 Patient History The patient is a 77-year-old male with a medical history significant for Lewy body dementia, coronary artery disease with a pacemaker, hypertension, exercise-induced asthma, lumbar radiculopathy, BPH. Four years ago he experienced a 20-foot fall onto concrete and was airlifted to the hospital, where he underwent multiple surgeries to recover from fractures. More recently, he was referred to the clinic due to concerns regarding deficits in cognitive- linguistic function, word-finding difficulties, and deficits in vocal intensity secondary to Parkinson's and Lewy body dementia. The pt states his goals for treatment are stronger voice, help finding words, and clear occasional fogginess. Impairments Identified Voice Progress Towards Goals Fair Progress Voice/Resonance Findings Mild-Moderate Impairment Voice/Resonance Prognosis Fair Voice/Resonance Yes Recommendations Voice/Resonance Treatment Once every 2 weeks Frequency Therapy Recommendations Continue on trajectory from previous voice therapy with continuation of HEP for vocal intensity. Additionally, provide training in respiratory control exercises. Short Term Goals 1. Pt will maintain average maximum phonation time of at least 12s. (UPDATED GOAL) 2. Pt will complete adduction exercises with 75% accuracy independently in order to decrease symptoms of presbyphonia. (NEW GOAL) 3. Pt and family will benefit from education in compensatory strategies for cognition including metacognitive strategies and external aids for memory. (CONTINUE) 4. Pt will complete respiratory control exercises to inhale/exhale at a ratio of 7s:14s in 80% of opportunities. Ammunition Supervisor Goals 1. Pt will demonstrate average intensity level of at least 70dB during structured conversation tasks. 2. Pt will utilize compensatory strategies for memory in order to complete IADLs (including medication management, cooking, etc) with minimal assistance from caregivers. Comment: POC updated for continued voice therapy based on recent decline in vocal intensity and sustained phonation time compared to previous sessions. Electronically Signed by: JHON Bernardo 10/06/23 8016 If you are in agreement with this Plan of Care, please return a signed and dated copy. I have reviewed this Plan of Care and certify that the skilled therapy services above are required to meet the patient?s needs. Physician Signature Date Printed Name and Credentials Clinical Instructor Signature Printed Name and Credentials
--- NOTE | 2023-10-06 11:39 | ST-OP ANOTE ---
Physical, Occupational & Speech Therapy At [facility] Speech Therapy Note CAREER RESOURCE SPECIALIST wrote new POC this date and sent via [employer] to referring physician (Rodolfo Yeager DO) requesting signature if in agreement.
--- NOTE | 2024-04-28 09:21 | ST.OPDS ---
Visit Care Team Role Provider Type Suleman Bautista DO Family Provider Physician Address: [address] [place], [address] Rodolfo Yeager DO Attending Provider Physician Primary Care Provider Referring Provider Address: [address] [place] [address], [address], [place], [address] DRY CHAIN WORKER Treatment Note DRY CHAIN WORKER Treatment Note Start: 03/23/23 09:33 Freq: Status: Active Protocol: Document 04/19/24 10:28 CG (Rec: 04/19/24 10:35 CG [id number]) Speech Pathology Treatment Note Visit Information Visit Number 1 Plan of Care Dates 10/06/23-01/06/24 Setting Treatment Setting Outpatient Care Visit Type Note Type Discharge Summary General Information Patient History The patient is a 77-year-old male with a medical history significant for Lewy body dementia, coronary artery disease with a pacemaker, hypertension, exercise-induced asthma, lumbar radiculopathy, BPH. Four years ago he experienced a 20-foot fall onto concrete and was airlifted to the hospital, where he underwent multiple surgeries to recover from fractures. More recently, he was referred to the clinic due to concerns regarding deficits in cognitive- linguistic function, word- finding difficulties, and deficits in vocal intensity secondary to Parkinson's and Lewy body dementia. The pt states his goals for treatment are stronger voice, help finding words, and clear occasional fogginess. Subjective Identification Type Name Chief Complaint(s) Cognitive,Voice Patient Knowledge/Awareness of DRY CHAIN WORKER Role Excellent in Treatment Patient/Caregiver Compliance with Home Excellent Exercise Program Objective Short Term Goals 1. Pt will maintain average maximum phonation time of at least 12s. (UPDATED GOAL) 2. Pt will complete adduction exercises with 75% accuracy independently in order to decrease symptoms of presbyphonia. (NEW GOAL) 3. Pt and family will benefit from education in compensatory strategies for cognition including metacognitive strategies and external aids for memory. (CONTINUE) 4. Pt will complete respiratory control exercises to inhale/exhale at a ratio of 7s:14s in 80% of opportunities. Clarity Developer Goals 1. Pt will demonstrate average intensity level of at least 70dB during structured conversation tasks. 2. Pt will utilize compensatory strategies for memory in order to complete IADLs (including medication management, cooking, etc) with minimal assistance from caregivers. Treatment Activities Tx activities throughout the course of treatment included the following: ral-facial exercises to increase facial movement and decrease flat affect,training and feedback on sustained /a/ exercises for increased phonation sufficiency, breath control exercise to increase respiratory support for phonation, development of and training in home exercise program based on PhoRTE approach, adduction exercises to decrease s/sx presbyphonia, instruction in use of external aids/compensatory strategies for memory. Assessment Patient Response to Treatment Good Rehab Potential Fair Impairments Identified Voice Progress Towards Goals Excellent Progress Assessment of Overall Progress Unchanged Assessment of Improvement Pt and his feel that they have good systems/external strategies in place for cognitive deficits, and recognize the limitations of impairment-based/drill-based cognitive therapy. They feel comfortable developing modifications and systems at home independently. Based on this, DRY CHAIN WORKER and pt/family together decided pt would have minimal therapeutic benefit from cognitive therapy at this time. Ron continued to present with a moderately hoarse voice , and breath control overall appears weakened. A new POC was written and pt continued tx under a duplicate account. POC updated this date with new goals emphasizing maintenance of progress and rehabilitation of vocal fold adduction. Discharge this duplicate account (other acct number is [id number]). Reviewed with Patient Goals,Progress Being Made Patient/Caregiver Understanding Good Plan Amount of Therapy Recommended 2-3 Months Frequency of Treatment Once a Week Length of Session 45 Minutes Therapeutic Contents Client Education,Voice Training Provided Patient/Caregiver Instruction Plan of Care Therapy Recommendations Other
== END 2024-04-29 10:04 | disposition home or self-care (01) ==
LOC: SP 10:30
PROVIDERS: Family Provider Physical Medicine & Rehabilitation; PCP Family Medicine; Referring Provider Family Medicine; Visit Provider Family Medicine
DX: G31.83 Neurocognitive disorder with Lewy bodies (principal); F02.A0 Dementia in other diseases classified elsewhere, mild, without behavioral disturbance, psychotic disturbance, mood disturbance, and anxiety; G20 Parkinson's disease
CPT/HCPCS: 92507; 92524; 97129; 97130

== ENCOUNTER → 2023-12-25 15:06 | Outpatient (CLI) | payer MEDICARE, OTHER, SELFPAY ==
--- NOTE | 2023-12-25 15:10 | DI.RAD.S_ITS ---
PROCEDURE: XR CHEST 2V INDICATIONS: DYSPENA ON EXERTION TECHNIQUE: 2 views of the chest were acquired. COMPARISON: None. FINDINGS: Surgical changes and devices: Pacemaker, remote CABG, dorsal column stimulator period. Lungs and pleura: Lungs are clear. No pleural effusions or pneumothorax. Mediastinum: Mediastinal contours are normal. Heart size is normal. Bones and chest wall: No suspicious bony abnormalities. Soft tissues appear unremarkable. IMPRESSION: No acute cardiopulmonary abnormality is seen. Dictated by: Darryl Pretty M.D. on 12/25/2023 at 18:05 Approved by: Darryl Pretty M.D. on 12/25/2023 at 18:06
== END ==
LOC: RAD 15:09
PROVIDERS: Family Provider Family Medicine; PCP Family Medicine; Referring Provider Internal Medicine; Visit Provider Internal Medicine
DX: J45.30 Mild persistent asthma, uncomplicated (principal); R06.09 Other forms of dyspnea
CPT/HCPCS: 71046

== ENCOUNTER → 2024-02-10 08:23 | Outpatient (CLI) | payer MEDICARE, OTHER, SELFPAY ==
[2024-02-10 09:05] LABS: Add Manual Diff / Slide Review NO; Basophils Absolute Auto 0 /uL (0-100); Basophils Percent Auto 0.7 % (0-2); Eosinophils Absolute Auto 400 /uL (0-450); Eosinophils Percent Auto 6.5 % (2-4); Hematocrit 38.8 % (41-53); Hemoglobin 13.1 g/dL (13.5-17.5); Lymphocytes Absolute Auto 2600 /uL (1100-4500); Mean Corpuscular HGB Conc 33.9 % (30-36); Mean Corpuscular Hemoglobin 32.5 PG (26-34); Mean Corpuscular Volume 95.8 fL (80-100); Monocytes Absolute Auto 700 /uL (0-900); Monocytes Percent Auto 12.9 % (3-14); Neutrophils Absolute Auto 1900 /uL (1500-7000); Neutrophils Percent Auto 33.9 % (50-75); Platelet Count 164 X10^3/uL (150-400); Red Blood Cell Count 4.04 X10^6/uL (4.5-5.9); Red Cell Distribution Width 13.3 % (11.6-14.8); White Blood Cell Count 5.7 X10^3/uL (4.5-11.0)
[2024-02-10 09:29] LABS: Alanine Aminotransferase 20 IU/L (<50); Albumin 4.1 g/dL (3.5-5.0); Albumin Globulin Ratio 1.4 (1.0-2.8); Alkaline Phosphatase 74 U/L (38-126); Aspartate Aminotransferase 23 IU/L (17-59); BUN Creatinine Ratio 22.3 (6-22); Bilirubin Total 0.7 mg/dL (0.2-1.3); Blood Urea Nitrogen 21 mg/dL (9-20); Calcium 9.5 mg/dL (8.4-10.2); Carbon Dioxide 31 mmol/L (22-32); Chloride 106 mmol/L (98-107); Cholesterol 135 mg/dL (140-199); Estimated Glomerular Filt Rate > 60 mL/min (>60); Globulin 2.9 g/dL (1.7-4.1); Glucose 93 mg/dL (80-110); HDL Cholesterol 40 mg/dL (40-60); HEMOLYSIS < 15 (0-50); LDL Cholesterol Calculated 61 mg/dL (<100); Potassium 4.8 mmol/L (3.4-5.1); Sodium 141 mmol/L (137-145); Triglycerides 168 mg/dL (35-150)
[2024-02-10 09:54] LABS: TSH w/ Reflex to FT4 5.87 uIU/mL (0.47-4.68)
[2024-02-10 10:14] LABS: Vitamin B12 998 pg/mL (239-931)
[2024-02-10 10:25] LABS: Free T4, Direct Thyroxine 0.92 ng/dL (0.78-2.19)
== END ==
PROVIDERS: Family Provider Family Medicine; PCP Family Medicine; Referring Provider Family Medicine; Visit Provider Family Medicine
DX: I25.10 Atherosclerotic heart disease of native coronary artery without angina pectoris (principal); Z00.00 Encounter for general adult medical examination without abnormal findings; G31.83 Neurocognitive disorder with Lewy bodies; F02.80 Dementia in other diseases classified elsewhere, unspecified severity, without behavioral disturbance, psychotic disturbance, mood disturbance, and anxiety; E53.8 Deficiency of other specified B group vitamins; G62.9 Polyneuropathy, unspecified; G20.A1 Parkinson's disease without dyskinesia, without mention of fluctuations
CPT/HCPCS: 36415; 80053; 80061; 82607; 84439; 84443; 85025

== ENCOUNTER 2024-03-24 12:22 | Outpatient (CLI) | payer MEDICARE, OTHER, SELFPAY ==
[2024-03-24] VITALS (9 sets, daily range): BP systolic 110–134; BP diastolic 55–83; PULSE 60–66; RESP 12–18; O2SAT 94–100
--- NOTE | 2024-03-24 13:00 | DI.RAD.S_ITS ---
PROCEDURE: PAIN L INTERLAMINAR/CAUDAL INJ INDICATIONS: L5-S1 translaminar HANNA COMPARISON: [facility], , PAIN L INTERLAMINAR/CAUDAL INJ, 07/28/2023, 10:22. FINDINGS: Fluoroscopic spot filming was performed to verify placement of spinal needles at the L5-S1 level(s), as labeled on the films. Appropriate location(s) of the needle tip(s) was confirmed by injection of iodinated contrast. IMPRESSION: Intra procedural examination demonstrating appropriate positions of the needles. Dictated by: Rbuen Salazar M.D. on 03/24/2024 at 14:23 Approved by: Ruben Salazar M.D. on 03/24/2024 at 14:24
[2024-03-24] MEDS: MIDAZOLAM 2 MG/2 ML VIAL IV (13:37)
[2024-03-24] MEDS: iopamidoL 15 ML VIAL 3 ML INJ (13:41)
[2024-03-24] MEDS: BETAMETHASONE 30 MG/5 ML MDV 6 MG INJ (13:41)
[2024-03-24] MEDS: DEXAMETHASONE 10 MG/ML VIAL INJ (13:41)
[2024-03-24] MEDS: BUPIVACAINE 0.25% (PF) VIAL 2 ML INJ (13:42)
--- NOTE | 2024-03-24 13:50 | P.PCN_ITS ---
Date/Time/Diagnoses Date of procedure: 03/24/24 Time of procedure: 13:50 Pre-procedure diagnosis: 1. HNP WITH RADICULAR FEATURES, 2. MULTILEVEL CENTRAL STENOSIS, Post-procedure diagnosis: same Procedure Notes Procedure: 1. FLUOROSCOPICALLY GUIDED CONTRAST CONTROLLED INTERLAMINAR EPIDURAL STEROID INJECTION - L5/S1 Indications: Ron is referred by Dr. Yeager for treatment of Bilateral Foraminal Stenosis L>R LE symptoms. Physician: Suleman Bautista Total Fluoroscopy time (seconds): 7 Total sedation minutes: 10 Complications: none Procedure in detail & Post-procedure care: FINDINGS Multilevel Central Spinal Stenosis with Nerve Root Compression DESCRIPTION OF PROCEDURE Fluoroscopically guided, contrast-controlled L5/S1 translaminar epidural steroid injection. Following review of allergy and review of potential side effects and complications, including, but not necessarily limited to, infection, allergic reaction, local tissue breakdown, temporary as well as permanent nerve injury, paralysis, stroke and possible , the patient indicated that the patient understood and agreed to proceed. An informed consent document was signed by the patient, witnessed by a nurse, and placed in the patient's chart. Additionally, other treatment options including modalities, medications, and physical therapy were reviewed with the patient. After review of previous anaesthesic history and IV conscious sedation the patient was deemed safe to proceed with today?s procedure with IV conscious sedation as ASA class II designation. Safety time-out was performed to confirm patient ID, procedure to be performed and site of procedure. IV sedation was accomplished with a combination of 2mg of Versed administered by the RN after DO order, titrated to patient comfort during the course of the procedure while the patient remained responsive to all verbal commands. In the prone position, following sterile prep and drape of the lumbar region, the L5/S1 translaminar space was identified fluoroscopically. The skin was anesthetized via a 25-gauge, 1.5-inch needle with 1% lidocaine solution. At this point, a 22-gauge short bevel spinal needle was atraumatically introduced and advanced under fluoroscopic guidance into the region of the L5/S1 translaminar space. Depth was confirmed on lateral view. Radiological data, including multiple fluoroscopic views of the lumbar spine, reveal a spinal needle at the L5/S1 translaminar space. Lateral views then show placement of the needle in the epidural space. Subsequent views show contrast material flowing superiorly and inferiorly in the epidural space. No vascular or intrathecal uptake is observed. At this point, using loss of resistance technique with saline and air, the epidural space was entered. This was confirmed following negative aspiration with injection of approximately 1.5cc of Isovue 200, showing excellent epidural flow without vascular or intrathecal uptake. At this point, 1 cc of 1% lidocain e solution combined with 2cc or 10mg of dexamethasone and 6mg of betamethasone was injected without incident. The patent tolerated the procedure without signs of symptoms of complications prior to transfer to the recovery area for further monitoring. The patient was then transferred to the recovery area where they were observed for an appropriate period of time after the injection. The patient reported a VAS score of 6 prior to the procedure and a post-procedure VAS of 0. POST OP INSTRUCTIONS The patient was provided a Pain Log to continue to record their response to the target-specific procedure prior to follow-up visit with their referring physician. Additionally, specific post-injection care instructions and a contact number to our office were provided if concerns arise regarding possible complications associated with the procedure are suspected.
== END 2024-03-24 14:20 | disposition home or self-care (01) ==
PROVIDERS: Family Provider Family Medicine; PCP Family Medicine; Referring Provider Physical Medicine & Rehabilitation; Visit Provider Physical Medicine & Rehabilitation
DX: M51.17 Intervertebral disc disorders with radiculopathy, lumbosacral region (principal); M48.07 Spinal stenosis, lumbosacral region
CPT/HCPCS: 62323; 99152; J0702; J1100; J2250; J3490

== ENCOUNTER → 2024-04-19 10:19 | Outpatient (RCR) | payer MEDICARE, OTHER, SELFPAY ==
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
--- NOTE | 2024-04-19 10:35 | ST.OPDS ---
Visit Care Team Role Provider Type Suleman Bautista DO Family Provider Physician Address: [address] [place], [address] Rodolfo Yeager DO Attending Provider Physician Primary Care Provider Referring Provider Address: [address] [place] [address], [address], [place], [address] FLUTE POLISHER Treatment Note FLUTE POLISHER Treatment Note Start: 12/19/22 10:25 Freq: Status: Discharge Protocol: Document 03/02/23 10:10 CG (Rec: 03/02/23 10:20 CG [id number]) Speech Pathology Treatment Note Session Time Visit Start Time 09:30 Visit Stop Time 10:15 Total Visit Minutes 45 Visit Information Plan of Care Dates 12/12/22-03/12/23 Setting Treatment Setting Outpatient Care Visit Type Note Type Treatment Note Next Note Type Next Note Type Treatment Note General Information Patient History The patient is a 77-year-old male with a medical history significant for Lewy body dementia, coronary artery disease with a pacemaker, hypertension, exercise-induced asthma, lumbar radiculopathy, BPH. Four years ago he experienced a 20-foot fall onto concrete and was airlifted to the hospital, where he underwent multiple surgeries to recover from fractures. He was referred to the clinic due to concerns regarding deficits in cognitive-linguistic function, word-finding difficulties, and deficits in vocal intensity secondary to Parkinson's and Lewy body dementia. The pt states his goals for treatment are stronger voice, help finding words, and clear occasional fogginess. Subjective Identification Type Name Others Present Family Observations/Patient Presentation Pt attended the session independently. He reported reduced pain today. Chief Complaint(s) Cognitive,Voice Rehab Expectation/Goals: Patient Goals Pt would like to remember names better and have a stronger voice Patient Knowledge/Awareness of FLUTE POLISHER Role Good in Treatment Patient/Caregiver Compliance with Home Excellent Exercise Program Objective Intermediate Goals Pt will increase average maximum sustained phonation time to 15s. Pt will increase average dB level during reading passage during therapeutic tasks to 80db (from a baseline of 75.75 dB). Pt's will demonstrate Voice Handicap Index Score within the mild handicap range (0- 30 points). Treatment Activities Provided continued instruction in diaphragmatic breathing exercises. Sustained /a/, ascending pitch glide, descending pitch glide, functional phrases, and reading passage exercises were completed to target vocal intensity. Reviewed progress with patient, comparing all quantitative values to previous weeks. Re-assessed pt progress using Voice Handicap Index. Assessment Patient Response to Treatment Excellent Rehab Potential Excellent Impairments Identified Cognitive communication,Voice Progress Towards Goals Good Progress Assessment of Overall Progress Improving Assessment of Improvement Sustained /a/ exercises were completed with an average duration of 13.76 seconds and an average dB level of 70.6. This is a decrease in volume from last session, but a significant increase in duration of sustained /a/. Ascending pitch glides were completed with an average maximum pitch of 446 Hz and an average volume of 80.6 dB. Vocal quality at highest pitch was qualitatively observed to be increasingly clear and resonant. Descending pitch glides were completed with an average minimum pitch of 153.8 Hz and an average volume of 71.2dB. This lowest pitch is not as low as last week; however, volume was louder and clarity and consistency at lowest pitch was observed to be clearer and more resonant this week. Functional phrases were completed with an average of 77dB. Reading passage exercises were completed with an average of 79dB. Voice Handicap Index score was 21, which scores within the Mild Handicap range . Pt states he will be pursuing a new referral to continue voice therapy to further increase vocal abilities. Reviewed with Patient Progress Being Made,Home Exercise Program Patient/Caregiver Understanding Excellent Plan Amount of Therapy Recommended 3 Months Frequency of Treatment Once a Week Length of Session 45 Minutes Treatment Emphasis Next Session Voice Therapeutic Contents Voice Training Provided Patient/Caregiver Instruction Plan of Care,Questions/ Concerns Therapy Recommendations Discharge from Speech Therapy, Other Comment Request new referral for continued sessions Reason for Discharge End of POC Suggested Referral Primary Care Physician
== END ==
LOC: SP 12-12 09:13
PROVIDERS: Absent Provider Family Medicine; Family Provider Physical Medicine & Rehabilitation; PCP Family Medicine; Referring Provider Family Medicine; Visit Provider Family Medicine
DX: G31.83 Neurocognitive disorder with Lewy bodies (principal); F02.A0 Dementia in other diseases classified elsewhere, mild, without behavioral disturbance, psychotic disturbance, mood disturbance, and anxiety; I25.10 Atherosclerotic heart disease of native coronary artery without angina pectoris; I10 Essential (primary) hypertension
CPT/HCPCS: 92507; 92524; 96125; 97129; 97130

== ENCOUNTER 2024-07-07 14:00 | Outpatient (CLI) | payer MEDICARE, OTHER, SELFPAY ==
[2024-07-07] VITALS (9 sets, daily range): BP systolic 118–162; BP diastolic 68–82; PULSE 60–65; RESP 10–18; TEMP 35.8; O2SAT 94–98
--- NOTE | 2024-07-07 14:30 | DI.RAD.S_ITS ---
PROCEDURE: PAIN SI JOINT INJECTION KRISS INDICATIONS: Bilateral SI joint injection COMPARISON: [facility], , PAIN SI JOINT INJECTION KRISS, 12/30/2022, 10:48. FINDINGS: Fluoroscopic spot filming was performed to verify placement of spinal needles at the bilateral SI joints level(s), as labeled on the films. Appropriate location(s) of the needle tip(s) was confirmed by injection of iodinated contrast. IMPRESSION: Bilateral SI joint injection. Please see procedure report for details. Dictated by: Nehal Christie M.D. on 07/08/2024 at 16:41 Approved by: Nehal Christie M.D. on 07/08/2024 at 16:48
[2024-07-07] MEDS: MIDAZOLAM 2 MG/2 ML VIAL IV (15:10)
[2024-07-07] MEDS: BETAMETHASONE 30 MG/5 ML MDV 12 MG INJ (15:16)
[2024-07-07] MEDS: iopamidoL 15 ML VIAL 3 ML INJ (15:16)
[2024-07-07] MEDS: BUPIVACAINE 0.5% (PF) 10 ML VIAL 2 ML INJ (15:17)
--- NOTE | 2024-07-07 15:31 | PM.PROC.IR.1 ---
Date/Time/Diagnoses Date of procedure: 07/07/24 Time of procedure: 15:31 Pre-procedure diagnosis: Sacroiliac joint pain/DJD Post-procedure diagnosis: same Procedure Notes Procedure: Fluoroscopic guided contrast controlled bilateral sacroiliac joint injection Indications: Ron is referred by Dr. Yeager for treatment of bilateral sacroiliac joint DJD Physician: Suleman Bautista Total Fluoroscopy time (seconds): 10 Total sedation minutes: 15 Complications: none Procedure in detail & Post-procedure care: Description of procedure Fluoroscopic guided, contrast controlled bilateral sacroiliac joint injection Following review of allergies and review of potential side effects and complications, including, but not necessarily limited to, infection, allergic reaction, local tissue breakdown, temporary as well as permanent nerve injury, paralysis, stroke and possible , the patient indicated that they understood and agreed to proceed. An informed consent was signed by the patient, witnessed by a nurse, and placed in the patient's chart. Additionally, other treatment options including modalities, medications, and physical therapy were reviewed with the patient. After review of previous anaesthesic history and IV conscious sedation the patient was deemed safe to proceed with today?s procedure with IV conscious sedation as ASA class II designation. Safety time-out was performed to confirm patient ID, procedure to be performed and site of procedure. IV sedation was accomplished with a combination of 2mg Versed qwere administered by the RN after DO order, titrated to patient comfort during the course of the procedure while the patient remained responsive to all verbal commands In the prone position following sterile prep and drape of the pelvic region, the hyper lucency on in the inferior aspect of the sacroiliac joint was identified fluoroscopically the skin was anesthetized be a 25 gauge 1.5 inch needle with approximately 2cc of 1% lidocaine solution. At this point, a 22 gauge 3 in spinal needle was atraumatically introduced and advanced under fluoroscopic guidance into the inferior aspect of the right sacroiliac joint. Following negative aspiration, approximately 0.3cc of Isovue-300 was injected confirming intra-articular placement without vascular uptake. Radiographic data, including multiple fluoroscopic views of the pelvis, reveals a spinal needle in the sacroiliac joint hyper lucent zone. Subsequent view show flow contrast tear superiorly and inferiorly within the joint capsule without vascular intrathecal uptake. At this point a total of 1cc of 0.5% Marcaine was combined with 1cc of 6mg of betamethasone was injected without incident. Attention was then refocused the left sacroiliac joint where the procedure was replicated. The procedure tolerated the procedure well without signs or symptoms of complications prior to transfer to the recovery area continued monitoring without incident. The patient was then transferred to the recovery area with a bur observed for an appropriate time after the injection. The patient reverted a vas score of 7 prior to the procedure and post-procedure vas of 1. Postop instructions The patient was provided with a pain like to continue to record the patient's response to the target specific procedure prior to the patient's follow-up visit with the referring physician. Additionally, specific post injection care instructions and a contact number to our office were provided if concerns arise regarding the possible complications associated with procedure are suspected.
== END 2024-07-07 15:50 | disposition home or self-care (01) ==
LOC: RAD 14:00
PROVIDERS: Family Provider Family Medicine; PCP Family Medicine; Referring Provider Physical Medicine & Rehabilitation; Visit Provider Physical Medicine & Rehabilitation
DX: M53.3 Sacrococcygeal disorders, not elsewhere classified (principal); M46.1 Sacroiliitis, not elsewhere classified
CPT/HCPCS: 27096; 77002; 99152; J0702; J2250

== ENCOUNTER 2024-09-01 12:10 | Emergency (ER) | payer MEDICARE, OTHER, SELFPAY ==
[2024-09-01] VITALS (12 sets, daily range): BP systolic 112–166; BP diastolic 55–79; PULSE 60–66; RESP 12–20; TEMP 37.1; O2SAT 94–99; BMI 27.8
--- NOTE | 2024-09-01 12:30 | DI.RAD.S_ITS ---
PROCEDURE: XR CHEST 1V INDICATIONS: chest pain TECHNIQUE: One view of the chest was acquired. COMPARISON: [facility], CR, XR CHEST 2V, 12/25/2023, 15:12. FINDINGS: Surgical changes and devices: Stable AICD. Stable CABG postsurgical changes. Lungs and pleura: Lungs are clear. No pleural effusions or pneumothorax. Mediastinum: Mediastinal contours appear normal. Heart size is normal. Bones and chest wall: No suspicious bony lesions. Overlying soft tissues appear unremarkable. IMPRESSION: No acute cardiopulmonary abnormality is seen. Dictated by: Megan Ndiaye MD, PhD on 09/01/2024 at 12:47 Approved by: Megan Ndiaye MD, PhD on 09/01/2024 at 12:47
--- NOTE | 2024-09-01 12:30 | EKG_ITS ---
[address] [address] Test Date: 2024-09-01 Pat Name: Ron Mark Department: Room: Gender: Male Spot Worker: YANN : 1945 Requested By: Order Number: [id number] Reading MD: Valentino Russell MD Measurements Intervals [place] Rate: 60 P: 99 WY: 138 QRS: -39 QRSD: 152 T: 34 QT: 460 QTc: 460 Interpretive Statements AV dual-paced rhythm Biventricular pacemaker detected Electronically Signed On 09-02-2024 4:52:26 PDT by Valentino Russell MD
[2024-09-01 12:37] LABS: Prothrombin Time 11.7 SECONDS (9.4-12.5)
[2024-09-01 12:38] LABS: Add Manual Diff / Slide Review NO; Basophils Absolute Auto 0 /uL (0-100); Basophils Percent Auto 0.7 % (0-2); Eosinophils Absolute Auto 300 /uL (0-450); Eosinophils Percent Auto 4.3 % (2-4); Hematocrit 37.3 % (41-53); Lymphocytes Absolute Auto 2400 /uL (1100-4500); Lymphocytes Percent Auto 33.5 % (25-40); Mean Corpuscular HGB Conc 34.8 % (30-36); Mean Corpuscular Hemoglobin 33.7 PG (26-34); Mean Corpuscular Volume 96.9 fL (80-100); Monocytes Absolute Auto 1000 /uL (0-900); Monocytes Percent Auto 13.3 % (3-14); Neutrophils Absolute Auto 3500 /uL (1500-7000); Neutrophils Percent Auto 48.2 % (50-75); Platelet Count 155 X10^3/uL (150-400); Red Blood Cell Count 3.85 X10^6/uL (4.5-5.9); Red Cell Distribution Width 13.3 % (11.6-14.8); White Blood Cell Count 7.3 X10^3/uL (4.5-11.0)
[2024-09-01 12:40] LABS: PTT Partial Thromboplastin Tim 29 SECONDS (25.1-36.5)
[2024-09-01 12:45] LABS: Alanine Aminotransferase 9 IU/L (<50); Albumin 4.1 g/dL (3.5-5.0); Albumin Globulin Ratio 1.4 (1.0-2.8); Alkaline Phosphatase 70 U/L (38-126); Aspartate Aminotransferase 22 IU/L (17-59); BUN Creatinine Ratio 16.9 (6-22); Bilirubin Total 0.8 mg/dL (0.2-1.3); Blood Urea Nitrogen 24 mg/dL (9-20); Calcium 9.7 mg/dL (8.4-10.2); Carbon Dioxide 28 mmol/L (22-32); Chloride 102 mmol/L (98-107); Creatine Kinase 43 U/L (55-170); Estimated Glomerular Filt Rate 50 mL/min (>60); Glucose 103 mg/dL (80-110); HEMOLYSIS < 15 (0-50); Lipase 33 U/L (23-300); Magnesium 1.9 mg/dL (1.6-2.3); Sodium 136 mmol/L (137-145); Total Protein 7.1 g/dL (6.3-8.2)
--- NOTE | 2024-09-01 12:45 | ED.SYNCOPE ---
HPI - Syncope General Chief Complaint: Syncope Stated Complaint: Syncope Time Seen by Provider: 09/01/24 12:42 Source: patient, family and EMS Mode of arrival: EMS Limitations: no limitations History of Present Illness HPI narrative: Patient is a 78-year-old male history of Parkinson's and Lewy body dementia, hypertension hyperlipidemia comes into the ED from home via EMS for evaluation of syncopal episode. According to the was at bedside he is back to baseline, states that she left him and he was not responding for a few minutes, states that she tried to check her blood pressure states that she did not get a blood pressure, however patient was breathing moving seemed a little confused. At time of initial evaluation patient with blood pressure within normal limits. States that his neurologist is at [facility]. Patient does have pacemaker with a ED. Related Data Home Medications Medication Instructions Recorded Confirmed ascorbic acid (vitamin C) 1,000 mg 1 g PO DAILY 09/29/22 06/13/24 capsule aspirin 81 mg tablet,delayed 81 mg PO DAILY 09/29/22 06/13/24 release (Adult Aspirin Regimen) calcium citrate 250 mg 2 tab PO BID 09/29/22 06/13/24 calcium-vitamin D3 5 mcg (200 unit) tablet ferrous sulfate 325 mg (65 mg 325 mg PO DAILY 09/29/22 06/13/24 iron) tablet melatonin 10 mg capsule 20 mg PO BEDTIME PRN 04/17/23 06/13/24 rivastigmine 9.5 mg/24 hour 1 patch topical DAILY 10/16/23 06/13/24 transdermal patch fluticasone propionate 115 2 puff inhalation ONCE 01/20/24 06/13/24 mcg-salmeterol 21 mcg/actuation HFA inhaler (Advair HFA) memantine 10 mg tablet 10 mg PO BID 01/20/24 06/13/24 carbidopa 25 mg-levodopa 100 mg 1 tab PO QID 02/01/24 06/13/24 tablet carvedilol 12.5 mg tablet 12.5 mg PO BID 02/01/24 06/13/24 needle (disp) 25 gauge 25 gauge x #1,000 ea 04/28/24 06/13/24 1 (BD PrecisionGlide) Previous Rx's Medication Instructions Recorded tadalafil 20 mg tablet 20 mg PO DAILY PRN sexual activity 12/03/22 #30 tabs tadalafil 5 mg tablet (Cialis) 5 mg PO DAILY Prostate #90 tabs 12/03/22 albuterol sulfate 90 mcg/actuation 2 puff inhalation Q6H PRN 02/12/23 aerosol inhaler shortness of breath or wheezing #25.5 grams syringe with needle 3 mL 22 gauge #100 ea 10/02/23 x 1 ([employer] Luer Lock Syringe with needle) azelastine 137 mcg (0.1 %) nasal 1 spray intranasal BID #90 mL 01/01/24 spray cyanocobalamin (vitamin B-12) 1,000 mcg IM QMONTH #10 mL 01/01/24 1,000 mcg/mL injection solution montelukast 10 mg tablet 10 mg PO DAILY #90 tabs 01/01/24 omeprazole 20 mg capsule,delayed 20 mg PO BID #180 caps 01/01/24 release losartan 25 mg tablet 25 mg PO BID for BP #180 tabs 02/01/24 safety needles 25 gauge x 1 (BD #30 ea 02/01/24 Eclipse) simvastatin 40 mg tablet 40 mg PO BEDTIME cholesterol #90 02/01/24 tabs valacyclovir 1 gram tablet 2,000 mg (2 x 1 gram) PO Q12H PRN 02/01/24 (Valtrex) HSV infection #8 tabs Allergies Allergy/AdvReac Type Severity Reaction Status Date / Time shellfish derived Allergy Severe Anaphylaxis Verified 06/13/24 08:40 Review of Systems Review of Systems Narrative: General: Denies fever, chills, weight loss HEENT: Denies headache, eye drainage, eye irritation, head trauma, sore throat, voice change Cardiovascular: Denies any chest pain, palpitations, shortness of breath, tachycardia Respiratory: Denies any shortness of breath, cough, wheeze, stridor GI/: Denies any abdominal pain, nausea, vomiting, diarrhea, bright red blood per rectum, melanotic stools, urinary frequency, urinary retention, dysuria, hematuria MSK: Denies any joint pain, muscle pains, swelling Skin: Denies any rashes, lesions, discoloration Neuro: Positive syncope Psych: Denies SI/HI Patient History Medical History Encounter for subsequent annual wellness visit (AWV) in Medicare patient Compression fracture of L2 Sensory peripheral neuropathy Vitamin B12 deficiency Encounter for annual wellness visit (AWV) in Medicare patient Skin lesion (~2011) Osteopenia (~2016) Fractures (~2017) Foot pain (~2017) MRSA (methicillin resistant Staphylococcus aureus) Measles Herpes (~1998) Cataracts, bilateral (~2019) Sacral dysfunction Parkinson disease Erectile dysfunction BPH (benign prostatic hyperplasia) Lumbar radiculopathy History of pelvic fracture GERD (gastroesophageal reflux disease) (~2009) Exercise-induced asthma (~2011) CAD (coronary artery disease) Benign essential HTN Pulmonary embolism (~2017) Lewy body dementia (~2021) Surgical History S/P placement of nerve stimulator (~2018) Anesthesia History of repair of rotator cuff (~2012) History of meniscectomy of left knee (~08/2010) History of coronary artery bypass graft (~10/23/10) S/P TURP History of hand surgery Fractured pelvis (~03/2018) Pacemaker (~2014) Family History Father COPD (chronic obstructive pulmonary disease) Mother History of heart disease Hypertension Hyperlipidemia Stroke History of coronary artery bypass graft Brother History of heart disease Hypertension Sister Hypertension Grandmother Cancer Grandfather No problems noted. Grandmother Cancer Social History Smoking Status: Never smoker Smoking Status: Never smoker alcohol intake frequency: other Substance Use Type: does not use Exam Narrative Exam Narrative: General: Cooperative, comfortable, well-developed, not in acute distress HEENT: Normocephalic, atraumatic, PERRLA, normal sclera, eyelids normal, Neck: Active full range of motion, atraumatic Chest: Normal to inspection, negative crepitus, no overlying erythema ecchymosis Respiratory: Normal respiratory effort, not in acute respiratory distress, clear to auscultation bilaterally negative cough, wheeze, tachypnea, rhonchi, rales Cardiology: Regular rate rhythm negative gallop, murmur, rubs GI/: Normal to inspection, soft, nonrigid, no tenderness to palpation, exam deferred MSK: Full range of active range of motion of all 4 extremities, atraumatic Skin: No rashes lesions noted Neuro: Patient A&O x3, moving all 4 extremities spontaneously NIH of 0 at baseline with his history of Lewy body dementia and Parkinson's Psych: Cooperative, negative suicidal or homicidal ideations Initial Vital Signs Initial Vital Signs: Vital Signs Pulse Rate 60 09/01/24 12:14 Blood Pressure 112/59 L 09/01/24 12:14 Pulse Oximetry 95 09/01/24 12:14 Course Orders Ordered: ED Orders 09/01/24 12:00 Complete Blood Count AUTO DIFF Stat Comprehensive Metabolic Panel Stat Lipase Stat Magnesium Stat NT-proBNP (BNP-Adult 18+) Stat PTT Partial Thromboplastin Spencer Stat Prothrombin Time INR Stat Troponin & CK Cardiac Panel Stat 09/01/24 12:30 XR chest 1V Stat EKG-12 Lead Stat 09/01/24 12:55 CT angio head and neck Stat CT head/brain wo con Stat Discontinued Medications Aspirin (Aspirin 81 Mg Chew Tab) 324 mg PO NOW ONE Stop: 09/01/24 12:31 Last Admin: 09/01/24 13:37 Dose: Not Given Documented By: THOMAS Sodium Chloride (Normal Saline 0.9%) 1,000 mls @ 1,000 mls/hr IV BOLUS ONE Stop: 09/01/24 14:14 Last Admin: 09/01/24 13:38 Dose: 1,000 mls/hr Documented By: THOMAS Vital Signs Vital signs: Vital Signs - 8 hr 09/01/24 12:14 09/01/24 12:14 09/01/24 12:21 Temperature Pulse Rate 60 60 Respiratory Rate 19 Blood Pressure 112/59 L Pulse Oximetry 95 94 Oxygen Delivery Method 09/01/24 12:21 09/01/24 12:23 09/01/24 12:30 Temperature 98.7 F Pulse Rate 60 60 Respiratory Rate 16 20 Blood Pressure 113/56 L 133/55 L Pulse Oximetry 98 96 Oxygen Delivery Method Room Air 09/01/24 12:30 09/01/24 12:45 09/01/24 12:45 Temperature Pulse Rate 60 Respiratory Rate 13 Blood Pressure 113/55 L 120/64 Pulse Oximetry 96 Oxygen Delivery Method 09/01/24 13:26 09/01/24 13:30 09/01/24 13:30 Temperature Pulse Rate 60 62 Respiratory Rate 14 13 Blood Pressure 148/70 H Pulse Oximetry 96 96 Oxygen Delivery Method 09/01/24 13:45 09/01/24 13:45 09/01/24 14:00 Temperature Pulse Rate 61 65 Respiratory Rate 15 12 Blood Pressure 136/68 Pulse Oximetry 96 97 Oxygen Delivery Method 09/01/24 14:00 Temperature Pulse Rate Respiratory Rate Blood Pressure 142/76 H Pulse Oximetry Oxygen Delivery Method MDM - Syncope Differential Diagnosis Differential diagnosis: Likely syncope due to orthostatic hypotension, vasovagal syncope, subarachnoid hemorrhage, dehydration and other (Electrolyte abnormality, ACS,) Lab Data 09/01/24 12:00 09/01/24 12:00 Labs: Lab Results 09/01/24 Range/Units 12:00 WBC 7.3 (4.5-11.0) X10^3/uL RBC 3.85 L (4.5-5.9) X10^6/uL Hgb 13.0 L (13.5-17.5) g/dL Hct 37.3 L (41-53) % MCV 96.9 (80-100) fL MCH 33.7 (26-34) PG MCHC 34.8 (30-36) % RDW 13.3 (11.6-14.8) % Plt Count 155 (150-400) X10^3/uL Neut % (Auto) 48.2 L (50-75) % Lymph % (Auto) 33.5 (25-40) % Perkins % (Auto) 13.3 (3-14) % Eos % (Auto) 4.3 H (2-4) % Baso % (Auto) 0.7 (0-2) % Neut # (Auto) 3500 (7239-8170) /uL Lymph # (Auto) 2400 (9460-5951) /uL Perkins # (Auto) 1000 H (0-900) /uL Eos # (Auto) 300 (0-450) /uL Baso # (Auto) 0 (0-100) /uL PT 11.7 (9.4-12.5) SECONDS INR 1.0 (0.9-1.3) APTT 29 (25.1-36.5) SECONDS Sodium 136 L (137-145) mmol/L Potassium 5.0 (3.4-5.1) mmol/L Chloride 102 (98-107) mmol/L Carbon Dioxide 28 (22-32) mmol/L BUN 24 H (9-20) mg/dL Creatinine 1.42 H (0.66-1.25) mg/dL Estimated GFR 50 L (>60) mL/min BUN/Creatinine Ratio 16.9 (6-22) Glucose 103 (80-110) mg/dL Calcium 9.7 (8.4-10.2) mg/dL Magnesium 1.9 (1.6-2.3) mg/dL Total Bilirubin 0.8 (0.2-1.3) mg/dL AST 22 (17-59) IU/L ALT 9 (<50) IU/L Alkaline Phosphatase 70 (38-126) U/L Total Creatine Kinase 43 L (55-170) U/L Troponin I < 0.012 (0.01-0.034) ng/mL NT-Pro-B Natriuret Pep 54 (<450) pg/mL Total Protein 7.1 (6.3-8.2) g/dL Albumin 4.1 (3.5-5.0) g/dL Globulin 3.0 (1.7-4.1) g/dL Albumin/Globulin Ratio 1.4 (1.0-2.8) Lipase 33 (23-300) U/L Imaging Data CT scan - head: Radiologist's Impression: PROCEDURE: CT HEAD/BRAIN WO CON INDICATIONS: Syncope TECHNIQUE: Noncontrast 4.5 mm thick angled axial sections acquired from the foramen magnum to the vertex, with coronal and sagittal reformats. For radiation dose reduction, the following was used: automated exposure control, adjustment of mA and/or kV according to patient size. COMPARISON: [facility], CT, CT ANGIO HEAD AND NECK, 09/01/2024, 13:01. FINDINGS: Image quality: Diagnostic. CSF spaces: Basal cisterns are patent. No extra-axial fluid collections. The ventricles asymmetric, with the right lateral ventricle larger than the left. Brain: No intracranial bleeds or masses. There is cerebral volume loss for age, with resultant ventricular and sulcal prominence. There are periventricular and deep white matter chronic small vessel ischemic changes. There is intracranial internal carotid artery atherosclerosis. Note is made of calcification within the parenchyma of the cerebellum on both sides. Skull and face: Calvarium and visualized facial bones appear intact, without suspicious lesions. Sinuses: Visualized sinuses and mastoids are clear. IMPRESSION: No acute intracranial hemorrhage is seen. No acute intracranial pathology. Note is made of calcification within the parenchyma of the cerebellum on both sides. The appearance is nonspecific, yet this is felt most likely to be benign. Note is made of asymmetry of the lateral ventricles, with the right lateral ventricle larger than the left. Chest x-ray: Radiologist's Impression: PROCEDURE: XR CHEST 1V INDICATIONS: chest pain TECHNIQUE: One view of the chest was acquired. COMPARISON: [facility], CR, XR CHEST 2V, 12/25/2023, 15:12. FINDINGS: Surgical changes and devices: Stable AICD. Stable CABG postsurgical changes. Lungs and pleura: Lungs are clear. No pleural effusions or pneumothorax. Mediastinum: Mediastinal contours appear normal. Heart size is normal. Bones and chest wall: No suspicious bony lesions. Overlying soft tissues appear unremarkable. IMPRESSION: No acute cardiopulmonary abnormality is seen. CT angio head and neck: Radiologist's Impression: PROCEDURE: CT ANGIO HEAD AND NECK INDICATIONS: Syncope TECHNIQUE: After the administration of intravenous contrast, 1 mm thick sections acquired from the aortic arch through the [place] of [place]. 3-dimensional wypychh-pupfaqnid-hjoiasrskf (MIP) and/or volume rendering reformats were acquired of the central intracranial vasculature and neck separately. For radiation dose reduction, the following was used: automated exposure control, adjustment of mA and/or kV according to patient size. COMPARISON: [facility], CT, CT HEAD/BRAIN WO CON, 09/01/2024, 13:01. FINDINGS: Image quality: Limited by bolus timing, with venous contamination. BRAIN: CSF spaces: Ventricles are normal in size and shape. Basal cisterns are patent. No extra-axial fluid collections. Brain: No significant abnormality of the brain can be seen. Skull and face: Calvarium and facial bones appear intact, without suspicious lesions. Orbits appear normal. Sinuses: Sinuses and mastoids are clear. HEAD CT ANGIOGRAPHY: Anterior circulation: Intracranial internal carotid arteries are normal in size and flow. The flow within the paired anterior cerebral arteries is normal and symmetric. The flow within the middle cerebral arteries is normal and symmetric. The anterior communicating artery is seen. No aneurysms are seen. Posterior circulation: Visualized portions of the vertebral arteries demonstrate normal caliber, and join to form a normal appearing basilar artery. Flow within the posterior cerebral arteries is normal and symmetric. No aneurysms are seen. NECK CT ANGIOGRAPHY: Carotid system: The great vessels demonstrate a conventional anatomy as they arise from the aortic arch. The origins of the common carotid arteries appear patent. The common carotid arteries demonstrate normal caliber and courses. The bifurcation regions demonstrate no hemodynamically significant narrowing. Focal calcification can be seen involving the right carotid bifurcation region. The internal carotid arteries demonstrate normal calibers and courses. Posterior circulation: The origins of the vertebral arteries both appear widely patent. The more superior extracranial portions of both vertebral arteries also demonstrate normal courses and calibers. The right vertebral artery is dominant to the left. Soft tissues: Visualized neck soft tissues demonstrate no suspicious abnormalities. There is a left-sided pacer device seen. Bones: No suspicious bony lesions. Visualized cervical spine appears normally aligned. Age-appropriate bony degenerative changes are seen. Sternotomy wires are seen. IMPRESSION: No imaging explanation is found for this patient's presenting symptoms. No significant intracranial arterial abnormality is seen. No significant abnormality is seen within the arteries of the neck. Additional findings: Cervical spine degenerative change Sternotomy wires Left-sided pacer device ECG Data Attestation: I personally reviewed and interpreted this ECG as follows: Interpretation: EKG interpreted ED physician AV dual paced at 60 MDM Narrative Medical decision making narrative: Patient is a 78-year-old male history of Parkinson's, Lewy body dementia, with pacemaker and a ED brought in by ambulance from home for evaluation of syncope. According to the who is at bedside she left the patient for 30 minutes came back and the patient appeared to be in a ?daze. At time of initial evaluation patient is at baseline A&O x3 no focal deficits at bedside states he is at baseline. Did interrogate the patient's pacemaker, did not have any acute findings on interrogation. Patient will be safe for discharge home with outpatient follow up, patient with low Jefferson Davis syncope score. Discharge Plan Departure Patient Disposition: Home Clinical Impression: Syncope Activity Restrictions/Additional Instructions: Please follow-up with your neurologist and your recreation program coordinator Please read the discharge instructions sheet carefully and bring all papers to all doctor follow-up visits, as it may contain information that your doctor may want to see. Disease processes change and evolve, if your symptoms worsen or if you develop any new symptoms that are concerning to you please return for evaluation. Your evaluation today does not show any evidence of any life-threatening/serious illnesses requiring admission to the hospital or surgery. Please follow-up with your doctor for re-evaluation in approximately 1 day. Seek immediate medical attention for any worrisome symptoms. Prescriptions: No Action albuterol sulfate 90 mcg/actuation HFA aerosol inhaler 2 puff inhalation Q6H PRN (Reason: shortness of breath or wheezing) Qty: 25.5 3RF azelastine 137 mcg (0.1 %) aerosol,spray 1 spray intranasal BID Qty: 90 3RF Rx Instructions: administer into each nostril montelukast 10 mg tablet 10 mg PO DAILY Qty: 90 3RF omeprazole 20 mg capsule,delayed release(DR/EC) 20 mg PO BID Qty: 180 3RF cyanocobalamin (vitamin B-12) 1,000 mcg/mL solution 1,000 mcg IM QMONTH Qty: 10 3RF tadalafil 20 mg tablet 20 mg PO DAILY PRN (Reason: sexual activity) Qty: 30 11RF Rx Instructions: administer approximately 30min before sexual activity; do not use more than 1 dose per 24hrs tadalafil [Cialis] 5 mg tablet 5 mg PO DAILY Qty: 90 0RF carvedilol 12.5 mg tablet 12.5 mg PO BID valacyclovir [Valtrex] 1 gram tablet 2,000 mg PO Q12H PRN (Reason: HSV infection) Qty: 8 5RF carbidopa-levodopa 25-100 mg tablet 1 tab PO QID losartan 25 mg tablet 25 mg PO BID Qty: 180 3RF simvastatin 40 mg tablet 40 mg PO BEDTIME Qty: 90 3RF (DME) BD Eclipse 25 gauge x 1 needle See Rx Instructions .Route Qty: 30 5RF Rx Instructions: inject B12 monthly, IM (DME) [employer] Luer Lock Syr-needle 3 mL 22 gauge x 1 syringe See Rx Instructions .Route Qty: 100 0RF Rx Instructions: As directed, IM injection montly ascorbic acid (vitamin C) 1,000 mg capsule 1 g PO DAILY aspirin [Adult Aspirin Regimen] 81 mg tablet,delayed release (DR/EC) 81 mg PO DAILY calcium citrate-vitamin D3 250 mg-5 mcg (200 unit) tablet 2 tab PO BID ferrous sulfate 325 mg (65 mg iron) tablet 325 mg PO DAILY rivastigmine 9.5 mg/24 hour patch 24 hour 1 patch topical DAILY memantine 10 mg tablet 10 mg PO BID fluticasone propion-salmeterol [Advair HFA] 115-21 mcg/actuation HFA aerosol inhaler 2 puff inhalation ONCE (DME) BD PrecisionGlide 25 gauge x 1 needle See Rx Instructions .ROUTE .MEDSUPPLY Qty: 1000 Patient Comments: INJECT B12 MONTHLY Rx Instructions: As directed melatonin 10 mg capsule 20 mg PO BEDTIME PRN Referrals: Rodolfo Yeager DO [Primary Care Provider] - Stand Alone Forms: Patient Portal/API
--- NOTE | 2024-09-01 12:55 | DI.CT.S_ITS ---
PROCEDURE: CT HEAD/BRAIN WO CON INDICATIONS: Syncope TECHNIQUE: Noncontrast 4.5 mm thick angled axial sections acquired from the foramen magnum to the vertex, with coronal and sagittal reformats. For radiation dose reduction, the following was used: automated exposure control, adjustment of mA and/or kV according to patient size. COMPARISON: [facility], CT, CT ANGIO HEAD AND NECK, 09/01/2024, 13:01. FINDINGS: Image quality: Diagnostic. CSF spaces: Basal cisterns are patent. No extra-axial fluid collections. The ventricles asymmetric, with the right lateral ventricle larger than the left. Brain: No intracranial bleeds or masses. There is cerebral volume loss for age, with resultant ventricular and sulcal prominence. There are periventricular and deep white matter chronic small vessel ischemic changes. There is intracranial internal carotid artery atherosclerosis. Note is made of calcification within the parenchyma of the cerebellum on both sides. Skull and face: Calvarium and visualized facial bones appear intact, without suspicious lesions. Sinuses: Visualized sinuses and mastoids are clear. IMPRESSION: No acute intracranial hemorrhage is seen. No acute intracranial pathology. Note is made of calcification within the parenchyma of the cerebellum on both sides. The appearance is nonspecific, yet this is felt most likely to be benign. Note is made of asymmetry of the lateral ventricles, with the right lateral ventricle larger than the left. Dictated by: Jacky Baltazar M.D. on 09/01/2024 at 13:25 Approved by: Jacky Baltazar M.D. on 09/01/2024 at 13:27
--- NOTE | 2024-09-01 12:55 | DI.CT.S_ITS ---
PROCEDURE: CT ANGIO HEAD AND NECK INDICATIONS: Syncope TECHNIQUE: After the administration of intravenous contrast, 1 mm thick sections acquired from the aortic arch through the [place] of [place]. 3-dimensional wmjcdvg-fiiafixcb-xpchefqvue (MIP) and/or volume rendering reformats were acquired of the central intracranial vasculature and neck separately. For radiation dose reduction, the following was used: automated exposure control, adjustment of mA and/or kV according to patient size. COMPARISON: [facility], CT, CT HEAD/BRAIN WO CON, 09/01/2024, 13:01. FINDINGS: Image quality: Limited by bolus timing, with venous contamination. BRAIN: CSF spaces: Ventricles are normal in size and shape. Basal cisterns are patent. No extra-axial fluid collections. Brain: No significant abnormality of the brain can be seen. Skull and face: Calvarium and facial bones appear intact, without suspicious lesions. Orbits appear normal. Sinuses: Sinuses and mastoids are clear. HEAD CT ANGIOGRAPHY: Anterior circulation: Intracranial internal carotid arteries are normal in size and flow. The flow within the paired anterior cerebral arteries is normal and symmetric. The flow within the middle cerebral arteries is normal and symmetric. The anterior communicating artery is seen. No aneurysms are seen. Posterior circulation: Visualized portions of the vertebral arteries demonstrate normal caliber, and join to form a normal appearing basilar artery. Flow within the posterior cerebral arteries is normal and symmetric. No aneurysms are seen. NECK CT ANGIOGRAPHY: Carotid system: The great vessels demonstrate a conventional anatomy as they arise from the aortic arch. The origins of the common carotid arteries appear patent. The common carotid arteries demonstrate normal caliber and courses. The bifurcation regions demonstrate no hemodynamically significant narrowing. Focal calcification can be seen involving the right carotid bifurcation region. The internal carotid arteries demonstrate normal calibers and courses. Posterior circulation: The origins of the vertebral arteries both appear widely patent. The more superior extracranial portions of both vertebral arteries also demonstrate normal courses and calibers. The right vertebral artery is dominant to the left. Soft tissues: Visualized neck soft tissues demonstrate no suspicious abnormalities. There is a left-sided pacer device seen. Bones: No suspicious bony lesions. Visualized cervical spine appears normally aligned. Age-appropriate bony degenerative changes are seen. Sternotomy wires are seen. IMPRESSION: No imaging explanation is found for this patient's presenting symptoms. No significant intracranial arterial abnormality is seen. No significant abnormality is seen within the arteries of the neck. Additional findings: Cervical spine degenerative change Sternotomy wires Left-sided pacer device Any quantitative measurements of stenosis were performed using NASCET criteria. Dictated by: Jacky Baltazar M.D. on 09/01/2024 at 13:27 Approved by: Jacky Baltazar M.D. on 09/01/2024 at 13:30
[2024-09-01 12:56] LABS: NT-proBNP (BNP-Adult 18+) 54 pg/mL (<450); Troponin I < 0.012 ng/mL (0.01-0.034)
[2024-09-01] MEDS: SODIUM CHLORIDE 0.9% 1,000 ML 1000 ML IV (13:38)
== END 2024-09-01 15:08 | disposition home or self-care (01) ==
PROVIDERS: Emergency Provider Student in an Organized Health Care Education/Training Program; Family Provider Family Medicine; PCP Family Medicine
DX: R55 Syncope and collapse (principal); R07.9 Chest pain, unspecified; G20.A1 Parkinson's disease without dyskinesia, without mention of fluctuations; F02.80 Dementia in other diseases classified elsewhere, unspecified severity, without behavioral disturbance, psychotic disturbance, mood disturbance, and anxiety; I10 Essential (primary) hypertension; E78.5 Hyperlipidemia, unspecified; Z95.0 Presence of cardiac pacemaker
CPT/HCPCS: 70450; 70496; 70498; 71045; 80053; 82550; 83690; 83735; 83880; 84484; 85025; 85610; 85730; 93005; 96360; 99284; Q9967

== ENCOUNTER → 2024-10-21 09:34 | Outpatient (CLI) | payer MEDICARE, OTHER, SELFPAY ==
[2024-10-21 12:13] LABS: Free T3, Triiodothyronine Free 3.28 pg/mL (2.77-5.27)
[2024-10-21 12:46] LABS: Vitamin B12 > 1000 pg/mL (239-931)
== END ==
PROVIDERS: Family Provider Family Medicine; PCP Family Medicine; Referring Provider Family Medicine; Visit Provider Family Medicine
DX: E53.8 Deficiency of other specified B group vitamins (principal); R79.89 Other specified abnormal findings of blood chemistry
CPT/HCPCS: 36415; 82607; 84443; 84481

== ENCOUNTER → 2025-02-17 11:27 | Outpatient (CLI) | payer MEDICARE, OTHER, SELFPAY ==
[2025-02-17 12:40] LABS: BUN Creatinine Ratio 21.5 (6-22); Blood Urea Nitrogen 20 mg/dL (9-20); Carbon Dioxide 27 mmol/L (22-32); Chloride 104 mmol/L (98-107); Estimated Glomerular Filt Rate > 60 mL/min (>60); Glucose 76 mg/dL (80-110); HEMOLYSIS < 15 (0-50); Potassium 4.8 mmol/L (3.4-5.1); Sodium 141 mmol/L (137-145)
[2025-02-17 14:26] LABS: Creatinine Urine Random 93.29 mg/dL
[2025-02-17 14:31] LABS: Microalbumin Urine Random 6.1 mg/dL (0-1.6)
== END ==
PROVIDERS: PCP Family Medicine; Referring Provider Family Medicine; Visit Provider Family Medicine
DX: R55 Syncope and collapse (principal); N28.9 Disorder of kidney and ureter, unspecified; G20.A1 Parkinson's disease without dyskinesia, without mention of fluctuations
CPT/HCPCS: 80048; 82043; 82570; 84443

== ENCOUNTER → 2025-03-31 11:15 | Outpatient (CLI) | payer MEDICARE, OTHER, SELFPAY ==
[2025-03-31 14:44] LABS: Influenza A - CEPHEID Flu A NEGATIVE (NEGATIVE); Influenza B - CEPHEID Flu B NEGATIVE (NEGATIVE); Respiratory Syncytial Virus Negative (Negative)
[2025-03-31 14:46] LABS: COVID-19 CEPHEID 4-PLEX PCR Negative (Negative)
== END ==
LOC: LAB 11:18
PROVIDERS: PCP Family Medicine; Visit Provider Family Medicine
DX: R05.9 Cough, unspecified (principal)
CPT/HCPCS: 0241U

== ENCOUNTER → 2025-04-07 08:32 | Outpatient (CLI) | payer MEDICARE, OTHER, SELFPAY ==
--- NOTE | 2025-04-07 08:34 | DI.RAD.S_ITS ---
PROCEDURE: XR CHEST 2V INDICATIONS: cough x 4 wks. ? aspiration TECHNIQUE: 2 views of the chest were acquired. COMPARISON: [facility], CR, XR CHEST 1V, 09/01/2024, 12:33. FINDINGS: Surgical changes and devices: Pacemaker, sternal wires and stimulator leads. Lungs and pleura: Lungs are clear. No pleural effusions or pneumothorax. Mediastinum: Mediastinal contours are normal. Heart size is normal. Bones and chest wall: No suspicious bony abnormalities. Soft tissues appear unremarkable. IMPRESSION: No acute pulmonary process. Dictated by: Alida Montero M.D. on 04/07/2025 at 11:31 Approved by: Alida Montero M.D. on 04/07/2025 at 11:48
== END ==
LOC: RAD 08:33
PROVIDERS: PCP Family Medicine; Referring Provider Family Medicine; Visit Provider Family Medicine
DX: R05.9 Cough, unspecified (principal)
CPT/HCPCS: 71046

== ENCOUNTER → 2025-08-11 13:15 | Outpatient (CLI) | payer MEDICARE, OTHER, SELFPAY ==
--- NOTE | 2025-08-11 13:17 | DI.RAD.S_ITS ---
PROCEDURE: XR HAND RT MIN 3V INDICATIONS: Right hand/pointer finger pain after ground level fall TECHNIQUE: 3 views of the hand(s) acquired. COMPARISON: None. FINDINGS: Bones: Cortical irregularity involving 2nd metacarpal head and neck region concerning for a subtle impacted fracture in this area suggest clinical correlation and follow-up. No other fracture or dislocation. Osteoarthritic changes are noted throughout right hand more notably involving 2nd MCP joint. Carpal bones are normally aligned. No suspicious bony lesions. Soft tissues: No suspicious soft tissue calcifications. IMPRESSION: Age indeterminate deformity involving 2nd metacarpal head and neck region. No other fracture or dislocation. 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 Dictated by: Vishal Ma M.D. on 08/11/2025 at 13:53 Approved by: Vishal Ma M.D. on 08/11/2025 at 13:54
== END ==
PROVIDERS: PCP Family Medicine; Referring Provider Nurse Practitioner Family; Visit Provider Nurse Practitioner Family
DX: S69.91XA Unspecified injury of right wrist, hand and finger(s), initial encounter (principal); M19.041 Primary osteoarthritis, right hand; M19.031 Primary osteoarthritis, right wrist; W19.XXXA Unspecified fall, initial encounter
CPT/HCPCS: 73130

== ENCOUNTER → 2025-11-07 17:08 | Outpatient (CLI) | payer MEDICARE, OTHER, SELFPAY ==
[2025-11-07 17:34] LABS: Hematocrit 36.4 % (41-53); Hemoglobin 12.2 g/dL (13.5-17.5); Mean Corpuscular HGB Conc 33.6 % (30-36); Mean Corpuscular Hemoglobin 31.5 PG (26-34); Mean Corpuscular Volume 93.8 fL (80-100); Platelet Count 137 X10^3/uL (150-400)
[2025-11-07 17:53] LABS: Alanine Aminotransferase 10 IU/L (<50); Albumin 4.3 g/dL (3.5-5.0); Albumin Globulin Ratio 1.7 (1.0-2.8); Alkaline Phosphatase 70 U/L (38-126); Blood Urea Nitrogen 22 mg/dL (9-20); Calcium 9.3 mg/dL (8.4-10.2); Carbon Dioxide 27 mmol/L (22-32); Chloride 105 mmol/L (98-107); Estimated Glomerular Filt Rate > 60 mL/min (>60); Globulin 2.6 g/dL (1.7-4.1); Glucose 95 mg/dL (70-99); HEMOLYSIS < 15 (0-50); Potassium 4.5 mmol/L (3.4-5.1); Sodium 140 mmol/L (137-145); Total Protein 6.9 g/dL (6.3-8.2)
[2025-11-07 21:06] LABS: Band Neutrophils Percent 1.0 % (3-7); Eosinophils Percent Manual 2.0 % (2-4); Lymphocytes Percent Manual 43.0 % (25-45); Monocytes Percent Manual 8.0 % (2-11); Neutrophils Absolute Manual 2444 /uL (3000-5900); Segmented Neutrophils Percent 46.0 % (38-70); Total Cells Counted 100
[2025-11-07 21:22] LABS: RBC Morphology Normal Morphology
== END ==
PROVIDERS: PCP Family Medicine; Referring Provider Family Medicine; Visit Provider Family Medicine
DX: R06.02 Shortness of breath (principal)
CPT/HCPCS: 36415; 80053; 85025